=== PATIENT | female | born 1965 | race Caucasian/White ===

== ENCOUNTER 2020-01-31 20:40 | Inpatient (IN) | payer OTHER ==
[2020-01-31] MEDS ORDERED: ACETAMINOPHEN 325 MG TABLET (FP) PO ONE (20:45)
[2020-01-31 20:48] VITALS: BMI 29.4
[2020-01-31] MEDS ORDERED: ACETAMINOPHEN 325 MG TABLET (FP) ONE (20:52)
--- NOTE | 2020-01-31 21:02 | PDOC ---
Rapid Medical Evaluation Chief Complaint: Injury Time Seen by Provider: 01/31/20 20:45 Medical Evaluation: Allergies Allergy/AdvReac Type Severity Reaction Status Date / Time No Known Allergies Allergy Verified 10/10/15 23:49 Vital Signs Temp Pulse Resp BP Pulse Ox 98.1 F 72 19 142/74 99 01/31/20 20:44 01/31/20 20:44 01/31/20 20:44 01/31/20 20:44 01/31/20 20:44 01/31/20 21:01 Pt presents for evaluation of a L ankle injury. 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 Obvious swelling and guarding of the L ankle Orders: x-rays, tylenol Pt to proceed to the ER for further evaluation Discharge Disposition - Diagnosis Fall, Ankle pain - Referrals - Patient Instructions - Post Discharge Activity
[2020-01-31] MEDS ORDERED: IBUPROFEN 600 MG TABLET (FP) PO ONE ×2 (22:12→22:15)
--- NOTE | 2020-01-31 22:26 | PDOC ---
History of Present Illness - General Chief Complaint: Injury Stated Complaint: FALL Time Seen by Provider: 01/31/20 20:45 History Source: Patient, [employer] Used Exam Limitations: No Limitations - History of Present Illness Initial Comments: 01/31/20 22:19 54yo F with no PMH presents with b/l ankle pain and swelling after a fall. 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 Denies headstrike or LOC. Experienced b/l ankle pain. Abbrasion to right mccormick, but no knee or hip pain. ROS negative. PMH/PSH: x2 Meds: none Allergies: none PCP: Norris Jonas ROS GENERAL/CONSTITUTIONAL: No fever or chills. No weakness. HEAD, EYES, EARS, NOSE AND THROAT: No change in vision. No ear pain or discharge. No sore throat. CARDIOVASCULAR: No chest pain or shortness of breath RESPIRATORY: No cough, wheezing, or hemoptysis. GASTROINTESTINAL: No nausea, vomiting, diarrhea or constipation. GENITOURINARY: No dysuria, frequency, or change in urination. MUSCULOSKELETAL: +b/l ankle pain and swelling SKIN: No rash NEUROLOGIC: No headache, vertigo, loss of consciousness, or change in strength/sensation. ENDOCRINE: No increased thirst. No abnormal weight change HEMATOLOGIC/LYMPHATIC: No anemia, easy bleeding, or history of blood clots. ALLERGIC/IMMUNOLOGIC: No hives or skin allergy. PE GENERAL: Awake, alert, and fully oriented, in pain HEAD: No signs of trauma, normocephalic, atraumatic EYES: PERRLA, EOMI, sclera anicteric, conjunctiva clear ENT: Auricles normal inspection, hearing grossly normal, nares patent, oropharynx clear without exudates. Moist mucosa NECK: Normal ROM, supple, no lymphadenopathy, JVD, or masses LUNGS: No distress, speaks full sentences, clear to auscultation bilaterally HEART: Regular rate and rhythm, normal S1 and S2, no murmurs, rubs or gallops, peripheral pulses normal and equal bilaterally. ABDOMEN: Soft, nontender, normoactive bowel sounds. No guarding, no rebound. No masses EXTREMITIES : b/l ankle swelling and tenderness, L>R. L foot is cooler to touch, but sensation, motor function, and distal pulses intact NEUROLOGICAL: Cranial nerves II through XII grossly intact. Normal speech, gait not assessed SKIN: Warm, Dry, normal turgor, no rashes or lesions noted MDM: 54yo F with no PMH presents with b/l ankle pain and swelling after a fall. Plain film of both legs and feet were obtained and show fractures to the L distal fibula and tibia. -Pain control with tylenol 1000mg and ibuprophen 600mg, escalate as needed -Ice, elevation -splint 4mg IV morphine given, and posterior ankle splint with stirrup applied to left leg. Right ankle wrapped in george bandage -Admit because she cannot ambulate given sprain to R ankle and fracture on left. -Admission orders: CBC, CMP, EKG, CXR, Covid 01/31/20 23:[address] Peralta to admit the patient 02/01/20 00:00 Signed out to night ER team Past History - Medical History Allergies/Adverse Reactions: Allergies Allergy/AdvReac Type Severity Reaction Status Date / Time No Known Allergies Allergy Verified 01/31/20 23:37 Home Medications: Ambulatory Orders NK [No Known Home Medication] 10/10/15 COPD: No Diabetes: Yes (pre-diabetes) Thyroid Disease: Yes - Reproductive History Is Patient Now?: No - Immunization History Immunization Up to Date: Yes - Psycho-Social/Smoking History Smoking History: Never smoked Have you smoked in the past 12 months: No - Substance Abuse Hx (Audit-C & DAST Scrn) How often the patient has a drink containing alcohol: Never Score: In Men: 4 or > Positive; In Women: 3 or > Positive: 0 Screen Result (Pos requires Nsg. Audit-10AR): Negative In the last yr the pt used illegal drug/Rx for NonMed reason: No Score: Yes response is considered Positive: 0 Screen Result (Positive result requires Nsg. DAST-10): Negative *Physical Exam - Vital Signs Last Vital Signs Temp Pulse Resp BP Pulse Ox 98.1 F 72 19 142/74 99 01/31/20 20:44 01/31/20 20:44 01/31/20 20:44 01/31/20 20:44 01/31/20 20:44 ED Treatment Course - LABORATORY CBC & Chemistry Diagram: 01/31/20 22:50 01/31/20 22:50 - Medications Given in the ED: ED Medications Discontinued Medications Generic Name Dose Route Start Last Admin Trade Name Karthikeyan PRN Reason Stop Dose Admin Acetaminophen 1,000 mg 01/31/20 20:45 01/31/20 20:54 Tylenol - PO 01/31/20 20:46 1,000 mg ONCE ONE Administration Ibuprofen 600 mg 01/31/20 22:12 01/31/20 22:16 Motrin - PO 01/31/20 22:13 600 mg ONCE ONE Administration Discharge - Discharge Information Problems reviewed: Yes Clinical Impression/Diagnosis: Fall Qualifiers: Encounter type: initial encounter Qualified Code(s): W19.XXXA - Unspecified fall, initial encounter Ankle pain Qualifiers: Chronicity: acute Laterality: bilateral Qualified Code(s): M25.571 - Pain in right ankle and joints of right foot; M25.572 - Pain in left ankle and joints of left foot Closed left ankle fracture Qualifiers: Encounter type: initial encounter Qualified Code(s): S82.892A - Other fracture of left lower leg, initial encounter for closed fracture - Admission Yes - Follow up/Referral - Patient Discharge Instructions - Post Discharge Activity
[2020-01-31] MEDS ORDERED: morphine CARPU-JECT 2 MG/1 ML DISP.SYRIN IVPUSH ONE ×2 (22:47→23:16)
[2020-01-31] MEDS ORDERED: MORPHINE SULFATE 2 MG/ML VIAL ONE ×2 (22:54→23:19)
[2020-01-31 23:00] LABS: BASO % 0.5 % (0-2.0); EOS % 0.5 % (0-4.5); HEMATOCRIT 51.4 % (32.4-45.2); LYMPH % 6.3 % (8-40); MCH 28.6 pg (25.7-33.7); MCHC 33.1 g/dl (32.0-36.0); MEAN CELL VOLUME 86.2 fl (80-96); MONO % 4.9 % (3.8-10.2); NEUT % 87.8 % (42.8-82.8); PLATELET COUNT 153 K/MM3 (134-434); RBC 5.96 M/mm3 (3.60-5.2); RDW 13.7 % (11.6-15.6); WHITE BLOOD COUNT 11.1 K/mm3 (4.0-10.0)
--- NOTE | 2020-01-31 23:28 | PDOC ---
Documentation entered by Rosalba Wright SCRIBE, acting as scribe for Nina Jenkins MD. Nina Jenkins MD: This documentation has been prepared by the Gabriella galicia Sydney, SCRIBE, under my direction and personally reviewed by me in its entirety. I confirm that the documentation accurately reflects all work, treatment, procedures, and medical decision making performed by me. Attending Attestation - Resident Resident Name: [email or web address] - ED Attending Attestation I have performed the following: I have examined & evaluated the patient, The case was reviewed & discussed with the resident, I agree w/resident's findings & plan, Exceptions are as noted - HPI HPI: 01/31/20 21:46 Patient is a 54 year old female with a significant past medical history of pre- diabetes, hypothyroidism who presents to the ED s/p mechanical fall. 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 Denies loss of consciousness, dizziness, headache, nausea, vomiting, diarrhea, or urinary changes. Allergies: NKDA PCP: Dr. Dee Cantrell - Physicial Exam PE: 01/31/20 21:49 wnwd 54 yo female fell backwards and injured her left ankle head ncat neck no midline cervical vertebral tenderness lungs cta b/l cvs [id number] abdomen nontender skin warm and dry no lacerations extremities left ankle tenderness ,swelling ,good dt and pt pulses, sensation intact neuro axox3 01/31/20 22:08 GENERAL: Well-appearing, well-nourished. No apparent distress. HEENT: Normocephalic, atraumatic. PERRL, EOM intact. CARDIOVASCULAR: Normal S1, S2. Regular rate and rhythm. PULMONARY: Clear to auscultation bilaterally. ABDOMEN: Soft, non-distended, non-tender. EXTREMITIES: +swelling on the dorsal and medial side of L foot, hematoma on the dorsal aspect of R foot, 1 cm abrasion below R knee Normal ROM in all four extremities. SKIN: Warm, dry. No rash NEUROLOGICAL: No focal neurological deficits. - Medical Decision Making 01/31/20 21:52 radiograph left distal tibia and fibula fracture, no dislocation, ankle mortice normal right ankle sprain plsn splinting .ortho follow up 02/01/20 00:39 Discharge - Discharge Information Problems reviewed: Yes Clinical Impression/Diagnosis: Fall, Ankle pain Closed left ankle fracture Qualifiers: Encounter type: initial encounter Qualified Code(s): S82.892A - Other fracture of left lower leg, initial encounter for closed fracture - Follow up/Referral - Patient Discharge Instructions - Post Discharge Activity
[2020-01-31 23:35] LABS: BLOOD UREA NITROGEN 14.1 mg/dL (7-18); CALCIUM 10.4 mg/dL (8.5-10.1); CREATININE 0.8 mg/dL (0.55-1.3); POTASSIUM 4.2 mmol/L (3.5-5.1); TOT PROT 7.2 g/dl (6.4-8.2)
[2020-01-31 23:38] LABS: BILIRUBIN,TOTAL 0.7 mg/dL (0.2-1)
[2020-02-01] MEDS ORDERED: morphine CARPU-JECT 2 MG/1 ML DISP.SYRIN IVPUSH ONE (00:04)
[2020-02-01] MEDS ORDERED: MORPHINE SULFATE 2 MG/ML VIAL ONE ×3 (00:07→10:53)
--- NOTE | 2020-02-01 10:32 | EKG ---
Test Reason : Blood Pressure : / mmHG Vent. Rate : 073 BPM Atrial Rate : 073 BPM P-R Int : 144 ms QRS Dur : 074 ms QT Int : 384 ms P-R-T Axes : 032 035 028 degrees QTc Int : 423 ms POOR DATA QUALITY, INTERPRETATION MAY BE ADVERSELY AFFECTED NORMAL SINUS RHYTHM SEPTAL INFARCT , AGE UNDETERMINED ABNORMAL ECG WHEN COMPARED WITH ECG OF 10-OCT-2015 23:53, NO SIGNIFICANT CHANGE WAS FOUND Confirmed by MD Pawan, Allan ([id number]) on 02/01/2020 10:32:32 AM Referred By: Confirmed By:Allan Villalta MD
[2020-02-01] MEDS ORDERED: HEPARIN NA (PORCINE) 5,000 UNITS/ML 1ML VIAL ONE (10:54)
[2020-02-01] MEDS: MORPHINE SULFATE 2 MG/ML VIAL IVPUSH PRN ×3 (11:02→20:35)
[2020-02-01] MEDS: HEPARIN NA (PORCINE) 5,000 UNITS/ML 1ML VIAL SQ SCH ×2 (11:02→22:19)
[2020-02-01 14:19] LABS: INR 1.03 (0.83-1.09); PROTHROMBIN TIME (PATIENT) 12.1 SEC (9.7-13.0)
--- NOTE | 2020-02-01 17:00 | CONSULT ---
Consult - text type - Consultation Consultation Note: ORTHOPEDIC SURGERY CONSULTATION NOTE Department of Orthopedic Surgery HISTORY OF PRESENT ILLNESS Mr. Merritt is a 54 year old female with a significant past medical history of pre-diabetes, hypothyroidism who presents to the ED s/p mechanical fall. 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 The patient notes severe pain in her left ankle, and moderate pain in her right ankle, which worsens with movement. Denies any other injuries. Denies numbness, tingling or other constitutional complaints. Denies tobacco use, drug use, alcohol abuse. The patient lives with family and uses no assistive devices at baseline. FAMILY HISTORY non-contributory REVIEW OF SYMPTOMS A twelve-point review of systems was performed and was negative except as noted in HPI. PHYSICAL EXAM Constitutional: Alert and oriented to person, place, and time. Appears well- developed and well-nourished. No acute distress, appropriate mood and affect. Right Upper Extremity: Skin warm, dry, and intact; no lesions, rashes or ulcers noted. Muscle mass equal and symmetric to contralateral side. No atrophy noted. No masses or effusions noted. No tenderness to palpation all joints; nontender throughout rest of extremity. Full passive and active ROM, free from pain. Joints stable with no pathologic laxity. M/R/U/MSK/AX motor intact; SILT distally; 2+ radial pulses; Cap refill brisk. Tone and reflexes normal. Left Upper Extremity: Skin warm, dry, and intact; no lesions, rashes or ulcers noted. Muscle mass equal and symmetric to contralateral side. No atrophy noted. No masses or effusions noted. No tenderness to palpation all joints; nontender throughout rest of extremity. Full passive and active ROM, free from pain. Joints stable with no pathologic laxity. M/R/U/MSK/AX motor intact; SILT distally; 2+ radial pulses; Cap refill brisk. Tone and reflexes normal. Right Lower Extremity: Skin warm, dry, and intact; no lesions, rashes or ulcers noted. Muscle mass equal and symmetric to contralateral side. No atrophy noted. No masses or effusions noted. Tender to palpation at the ATFL, with mild swelling noted laterally; nontender throughout rest of extremity. No cords or calf tenderness No significant calf/ankle edema. Full passive and active ROM of the knee and hip , free from pain. Joints stable with no pathologic laxity. EHL/TA/GS motor limited secondary to pain; SILT distally; 2+ DP pulses; Cap refill brisk. Left Lower Extremity: Skin warm, dry, and intact; no lesions, rashes or ulcers noted. Muscle mass equal and symmetric to contralateral side. No atrophy noted. No masses or effusions noted. Tender to palpation at over the medial and lateral malleoli; nontender throughout rest of extremity. There is significant swelling over the anterior and lateral portions of the ankle. No cords or calf tenderness. Full passive and active ROM of the knee and hip, free from pain. LROM of the ankle secondary to pain and swelling; Joints stable with no pathologic laxity. EHL/FHL motor intact; SILT distally; 2+ DP pulses; Cap refill brisk. Active Problems Problem Status Category Onset Ankle pain Acute Medical Closed left ankle fracture Acute Medical Fall Acute Medical Social History Smoking history Never smoked Hx Alcohol Use No Allergies Allergy/AdvReac Type Severity Reaction Status Date / Time No Known Allergies Allergy Verified 01/31/20 23:37 Active Medications Generic Name Dose Route Start Last Admin Trade Name Freq PRN Reason Stop Dose Admin Heparin Sodium (Porcine) 5,000 unit 02/01/20 10:00 02/01/20 11:02 Heparin - SQ 5,000 unit BID NEGRITO Administration Morphine Sulfate 2 mg 02/01/20 01:00 02/01/20 16:04 Morphine Sulfate IVPUSH 2 mg Q4H PRN Administration PAIN LEVEL 6-10 Vital Signs (last) Temp Pulse Resp BP Pulse Ox 98.0 F 76 16 119/82 99 02/01/20 14:00 02/01/20 14:00 02/01/20 06:34 02/01/20 14:00 02/01/20 14:00 Intake and Output 01/30/20 01/31/20 02/01/20 23:59 23:59 23:59 Other: Weight 177 lb Height 5 ft 5 in Body Mass Index (BMI) 29.4 Weight Measurement Method Est/Stated by Patient Laboratory 01/31/20 22:50 01/31/20 22:50 PT with INR 12.10 SEC (9.7-13.0) 02/01/20 13:30 IMAGING I personally reviewed all radiographs, and other imaging. They demonstrate a left bimalleolar ankle fracture; Right ankle radiographs show no fracture, dislocation, bony lesions. ASSESSMENT AND PLAN Ms. Merritt is a 54 year old female presenting status post mechanical fall with 1.Left sided bimalleolar ankle fracture, and 2. Right sided ankle sprain. We have reviewed the imaging and clinical findings in detail, as well as their potential implications. After appropriate informed discussion, the patient was placed in a well-padded trilaminar splint. This is an operative fracture. Admit NPO past midnight except for meds - Hold all anticoagulation medications past midnight NWB LLE - WBAT RLE / PT F/U AM Labs Type and Screen LR 84cc/hr when NPO EKG CXR UA - Strict ICE/ELEVATION of left ankle Plan for surgery 02/02/2020 noon. All questions were answered. Thank you for involving our team in the care of this patient. Please call us at [phone] with questions
[2020-02-01 19:21] LABS: BASO % 0.6 % (0-2.0); EOS % 1.7 % (0-4.5); HEMATOCRIT 49.9 % (32.4-45.2); HEMOGLOBIN 16.4 GM/dL (10.7-15.3); LYMPH % 15.5 % (8-40); MCH 28.6 pg (25.7-33.7); MCHC 32.9 g/dl (32.0-36.0); MEAN CELL VOLUME 86.9 fl (80-96); MEAN PLT VOLUME 10.3 fl (7.5-11.1); MONO % 7.4 % (3.8-10.2); NEUT % 74.8 % (42.8-82.8); PLATELET COUNT 129 K/MM3 (134-434); RBC 5.75 M/mm3 (3.60-5.2); RDW 13.5 % (11.6-15.6); WHITE BLOOD COUNT 7.1 K/mm3 (4.0-10.0)
[2020-02-01 19:50] LABS: ALBUMIN 3.7 g/dl (3.4-5.0); BILIRUBIN,TOTAL 1.6 mg/dL (0.2-1); BLOOD UREA NITROGEN 13.6 mg/dL (7-18); CALCIUM 9.7 mg/dL (8.5-10.1); CREATININE 0.7 mg/dL (0.55-1.3); POTASSIUM 3.9 mmol/L (3.5-5.1); TOT PROT 6.8 g/dl (6.4-8.2)
--- NOTE | 2020-02-01 21:32 | HP ---
Admitting History and Physical - Admission History of Present Illness: Pt is a 54 y/o female w/ PMH significant for ?hypothyroidism and prediabetes. Pt was walking when she had a mechanical fall. Pt denies any LOC/VICKERS. Pt denies any head trauma. Pt presented to ER w/ increase pain in her ankles. XRAY of feet showed a Lt ankle fx. - Past Medical History ...LMP: 01/31/20 ...: No Endocrine: Yes: Hypothyroidism - Smoking History Smoking history: Never smoked Have you smoked in the past 12 months: No - Alcohol/Substance Use Hx Alcohol Use: No Home Medications - Allergies Allergies/Adverse Reactions: Allergies Allergy/AdvReac Type Severity Reaction Status Date / Time No Known Allergies Allergy Verified 01/31/20 23:37 - Home Medications Home Medications: Ambulatory Orders NK [No Known Home Medication] 10/10/15 Family Medical History Family History: Unremarkable Review of Systems - Review of Systems Constitutional: reports: No Symptoms Eyes: reports: No Symptoms HENT: reports: No Symptoms Neck: reports: No Symptoms Cardiovascular: reports: No Symptoms Respiratory: reports: No Symptoms Gastrointestinal: reports: No Symptoms Genitourinary: reports: No Symptoms Physical Examination Vital Signs: Vital Signs Temperature 98.4 F 02/01/20 18:07 Pulse Rate 70 02/01/20 18:07 Respiratory Rate 20 02/01/20 18:07 Blood Pressure 125/76 02/01/20 18:07 O2 Sat by Pulse Oximetry (%) 96 02/01/20 18:07 Eyes: Yes: WNL HENT: Yes: WNL Neck: Yes: WNL, Supple Cardiovascular: Yes: WNL, Regular Rate and Rhythm Respiratory: Yes: WNL, Regular, CTA Bilaterally Gastrointestinal: Yes: WNL, Normal Bowel Sounds, Soft Extremities: Yes: Other (Lt foot in cast) Neurological: Yes: WNL, Alert, Oriented ...Motor Strength: WNL Labs: CBC, BMP 02/01/20 18:30 02/01/20 18:30 Problem List - Problems (1) Closed left ankle fracture Assessment/Plan: Pt is medically optimized for surgery Will also get cardio consult due to ?abnormal EKG Check echo Cont IVF NPO Check labs in am Cont pain management Code(s): S82.892A - OTH FRACTURE OF LEFT LOWER LEG, INIT FOR CLOS FX Qualifiers: Encounter type: initial encounter Qualified Code(s): S82.892A - Other fracture of left lower leg, initial encounter for closed fracture (2) Right ankle sprain Code(s): S93.401A - SPRAIN OF UNSPECIFIED LIGAMENT OF RIGHT ANKLE, INIT ENCNTR (3) Hypothyroidism Assessment/Plan: Check TSH Code(s): E03.9 - HYPOTHYROIDISM, UNSPECIFIED (4) Prediabetes Assessment/Plan: Check HgA1c Code(s): R73.03 - PREDIABETES
[2020-02-02] MEDS: LACTATED RINGERS SOLUTION 1,000 ML/1,000 ML INFUS.BAG IV SCH ×4 (00:34→22:58)
[2020-02-02] MEDS: morphine SULFATE 4 MG/ML VIAL IVPUSH PRN ×2 (00:43→06:44)
[2020-02-02 08:36] LABS: BASO % 0.5 % (0-2.0); EOS % 1.7 % (0-4.5); HEMATOCRIT 49.7 % (32.4-45.2); HEMOGLOBIN 16.3 GM/dL (10.7-15.3); MCH 28.2 pg (25.7-33.7); MCHC 32.8 g/dl (32.0-36.0); MEAN PLT VOLUME 9.9 fl (7.5-11.1); MONO % 8.6 % (3.8-10.2); NEUT % 75.2 % (42.8-82.8); PLATELET COUNT 128 K/MM3 (134-434); RBC 5.77 M/mm3 (3.60-5.2); RDW 13.3 % (11.6-15.6)
[2020-02-02 08:55] LABS: ALBUMIN 3.6 g/dl (3.4-5.0); BILIRUBIN,TOTAL 0.8 mg/dL (0.2-1); BLOOD UREA NITROGEN 10.3 mg/dL (7-18); CALCIUM 9.8 mg/dL (8.5-10.1); CREATININE 0.6 mg/dL (0.55-1.3); POTASSIUM 4.1 mmol/L (3.5-5.1); TOT PROT 6.5 g/dl (6.4-8.2)
--- NOTE | 2020-02-02 10:51 | CON.CARD ---
Consult Consult Specialty:: Cardiology Reason for Consultation:: Preop clearence L ankle fx repair - History of Present Illness History of Present Illness: Pt is a 54 y/o female w/ PMH significant for ?hypothyroidism and prediabetes. Pt was walking when she had a mechanical fall. Pt denies any LOC/VICKERS. Pt denies any head trauma. Pt presented to ER w/ increase pain in her ankles. XRAY of feet showed a Lt ankle fx. h/o obtained via phone reference librarian. - History Source History Provided By: Patient, Medical Record - Past Medical History ...LMP: 01/31/20 ...: No Endocrine: Yes: Hypothyroidism - Alcohol/Substance Use Hx Alcohol Use: No - Smoking History Smoking history: Never smoked Have you smoked in the past 12 months: No Home Medications - Allergies Allergies/Adverse Reactions: Allergies Allergy/AdvReac Type Severity Reaction Status Date / Time No Known Allergies Allergy Verified 01/31/20 23:37 - Home Medications Home Medications: Ambulatory Orders NK [No Known Home Medication] 10/10/15 Review of Systems - Review of Systems Constitutional: reports: No Symptoms Eyes: reports: No Symptoms HENT: reports: No Symptoms Neck: reports: No Symptoms Cardiovascular: reports: No Symptoms Respiratory: reports: No Symptoms Gastrointestinal: reports: No Symptoms Genitourinary: reports: No Symptoms Breasts: reports: No Symptoms Reported Musculoskeletal: reports: No Symptoms Integumentary: reports: No Symptoms Neurological: reports: No Symptoms Endocrine: reports: No Symptoms Hematology/Lymphatic: reports: No Symptoms Psychiatric: reports: No Symptoms Vital Signs: Vital Signs Temperature 99.2 F 02/02/20 05:00 Pulse Rate 68 02/02/20 05:00 Respiratory Rate 20 02/02/20 05:00 Blood Pressure 150/88 02/02/20 05:00 O2 Sat by Pulse Oximetry (%) 97 02/02/20 05:00 Constitutional: Yes: Well Nourished, No Distress, Calm Eyes: Yes: WNL, Conjunctiva Clear, EOM Intact HENT: Yes: WNL, Atraumatic, Normocephalic Neck: Yes: WNL, Supple, Trachea Midline Respiratory: Yes: WNL, Regular, CTA Bilaterally Gastrointestinal: Yes: WNL, Normal Bowel Sounds Renal/: Yes: WNL Cardiovascular: Yes: WNL, Regular Rate and Rhythm Musculoskeletal: Yes: WNL Extremities: Yes: WNL Edema: Yes Integumentary: Yes: WNL Neurological: Yes: WNL, Alert, Oriented ...Motor Strength: WNL Psychiatric: Yes: WNL, Alert, Oriented - Other Data Labs, Other Data: CBC, BMP 02/02/20 07:05 02/02/20 07:05 INR, PTT INR 1.03 (0.83-1.09) 02/01/20 13:30 Imaging - Results Chest X-ray: Image Reviewed (no i/e) EKG: Image Reviewed (sr old septal infarct) Problem List - Problems (1) Ankle pain Code(s): M25.579 - PAIN IN UNSPECIFIED ANKLE AND JOINTS OF UNSPECIFIED FOOT Qualifiers: Chronicity: acute Laterality: bilateral Qualified Code(s): M25.571 - Pain in right ankle and joints of right foot; M25.572 - Pain in left ankle and joints of left foot (2) Closed left ankle fracture Code(s): S82.892A - OTH FRACTURE OF LEFT LOWER LEG, INIT FOR CLOS FX Qualifiers: Encounter type: initial encounter Qualified Code(s): S82.892A - Other fracture of left lower leg, initial encounter for closed fracture (3) Fall Code(s): W19.XXXA - UNSPECIFIED FALL, INITIAL ENCOUNTER Qualifiers: Encounter type: initial encounter Qualified Code(s): W19.XXXA - Unspecified fall, initial encounter (4) Hypothyroidism Code(s): E03.9 - HYPOTHYROIDISM, UNSPECIFIED (5) Prediabetes Code(s): R73.03 - PREDIABETES (6) Right ankle sprain Code(s): S93.401A - SPRAIN OF UNSPECIFIED LIGAMENT OF RIGHT ANKLE, INIT ENCNTR (7) Chest pain Code(s): R07.9 - CHEST PAIN, UNSPECIFIED Qualifiers: Chest pain type: unspecified Qualified Code(s): R07.9 - Chest pain, unspecified Assessment/Plan 54 y/o female w/ PMH significant for ?hypothyroidism and prediabetes. Pt was walking when she had a mechanical fall. Pt denies any LOC/VICKERS. Pt denies any head trauma. Pt presented to ER w/ increase pain in her ankles. XRAY of feet showed a Lt ankle fx. Repeated EKG WNL ECHO nl Patient has good exercise tolerancein excess of 4.6 mets no h/o of angina cad or any medical problems Patient is lul risk for cardiac complications during non cardiac surgery and cleared for the procedure. DVT plx
--- NOTE | 2020-02-02 11:48 | ECHO ---
Version: 1 Name: VAL SCHWARZ Exam: Adult Echocardiogram Study Date: 02/02/2020, 8:07 AM Age: 54 Years MMode/2D Measurements & Calculations IVSd: 0.97 cm LVIDs: 2.8 cm LVIDd: 4.8 cm LVPWd: 0.85 cm LAV (MOD-bp): 42.0 ml LVOT diam: 2.00 cm Ao root diam: 3.0 cm LA dimension: 2.9 cm Doppler Measurements & Calculations MV E max ivan: 79.8 cm/sec Med E/e': 11.8 MV A max ivan: 72.4 cm/sec Med Peak E' Ivan: 6.7 cm/sec MV E/A: 1.10 Lat E/e': 10.6 Lat Peak E' Ivan: 7.5 cm/sec Ao max P.2 mmHg Ao V2 max: 152.0 cm/sec TR max ivan: 224.3 cm/sec TR max P.3 mmHg Procedure A two-dimensional transthoracic echocardiogram with color flow and Doppler was performed. The patien t was in normal sinus rhythm during the exam. Left Ventricle The left ventricular size, thickness and function are normal. The transmitral spectral Doppler flow pattern is normal for age. Right Ventricle The right ventricle is normal in size and function. Atria Normal left and right atrial size and function. Mitral Valve The mitral valve is grossly normal. There is trace mitral regurgitation. Tricuspid Valve The tricuspid valve is not well visualized, but is grossly normal. There is mild tricuspid regurgita tion. Right ventricular systolic pressure is normal. Aortic Valve The aortic valve is trileaflet. No hemodynamically significant valvular aortic stenosis. Pulmonic Valve The pulmonic valve is not well visualized. Great Vessels The aortic root is normal size. Pericardium/Pleura There is no pericardial effusion. Summary Statements A two-dimensional transthoracic echocardiogram with color flow and Doppler was performed. The left ventricular size, thickness and function are normal Normal left and right atrial size and function. There is trace mitral regurgitation. There is mild tricuspid regurgitation. Right ventricular systolic pressure is normal. No hemodynamically significant valvular aortic stenosis. There is no pericardial effusion. MD Allan Villalta 02/02/2020, 11:48 AM Ordering Physician: Jeanie Peralta Performed By: Daniela Kelly
[2020-02-02] MEDS ORDERED: morphine SULFATE 4 MG/ML VIAL IVPUSH ONE (12:00)
[2020-02-02] MEDS ORDERED: ROPIVACAINE HCL 0.5% 30ML VIAL ONE (13:08)
[2020-02-02] MEDS ORDERED: MIDAZOLAM HCL 2 MG/2 ML SINGLE DOSE VIAL ONE ×2 (13:09)
--- NOTE | 2020-02-02 13:12 | EKG ---
Test Reason : Blood Pressure : / mmHG Vent. Rate : 064 BPM Atrial Rate : 064 BPM P-R Int : 144 ms QRS Dur : 082 ms QT Int : 398 ms P-R-T Axes : 026 036 033 degrees QTc Int : 410 ms NORMAL SINUS RHYTHM NORMAL ECG WHEN COMPARED WITH ECG OF 01-FEB-2020 00:21, T WAVE INVERSION NO LONGER EVIDENT IN ANTERIOR LEADS Confirmed by MD KEI, ANNE-MARIE ([id number]) on 02/02/2020 1:12:12 PM Referred By: Vijay HOWARD Confirmed By:ANNE-MARIE CHOUDHURY MD
[2020-02-02 13:14] LABS: EPI CELLS >36 /uL (0-25.1); HYALINE CASTS 0 /uL (0-3.1); URINE APPEARANCE CLEAR; URINE BACTERIA 227 /uL (0-1359); URINE BILIRUBIN NEGATIVE (NEGATIVE); URINE COLOR YELLOW; URINE GLUCOSE (UA) NEGATIVE (NEGATIVE); URINE KETONE NEGATIVE (NEGATIVE); URINE LEUK ESTERASE 2+ (NEGATIVE); URINE NITRITE NEGATIVE (NEGATIVE); URINE PROTEIN NEGATIVE (NEGATIVE); URINE RBC 5 /uL (0-23.9); URINE UROBILINOGEN 0.2 mg/dL (0.2-1.0); URINE WBC 91 /uL (0-25.8)
[2020-02-02] MEDS ORDERED: PROPOFOL 20 ML ONE (13:58)
[2020-02-02] MEDS ORDERED: LIDOCAINE HCL/PF 2% SDV 5ML VIAL ONE (13:58)
[2020-02-02] MEDS ORDERED: ONDANSETRON 4 MG/2 ML VIAL IVPUSH PRN ×2 (14:15→17:46)
[2020-02-02] MEDS ORDERED: PROMETHAZINE HCL 25 MG/1 ML VIAL IVPB PRN (14:15)
[2020-02-02] MEDS ORDERED: oxyCODONE HCL 5 MG TABLET PO PRN ×3 (14:15→17:46)
[2020-02-02] MEDS ORDERED: ACETAMINOPHEN 1000 MG/100 ML VIAL (NON FORMULARY) IVPB ONE ×2 (14:15→17:46)
[2020-02-02] MEDS ORDERED: LACTATED RINGERS SOLUTION 1,000 ML IV SCH (14:15)
[2020-02-02] MEDS ORDERED: ceFAZolin SODIUM 1 GM VIAL ONE (14:52)
[2020-02-02] MEDS ORDERED: ceFAZolin SODIUM 1 GM VIAL IVPB ONE (14:55)
--- NOTE | 2020-02-02 17:09 | OPR ---
DATE OF OPERATION: 02/02/2020 TITLE OF OPERATION: LEFT ANKLE ORIF PREOPERATIVE DIAGNOSIS: LEFT ANKLE FRACTURE POSTOPERATIVE DIAGNOSIS: LEFT ANKLE FRACTURE SURGEON: Christian Hatfield DO CLOTHING EXAMINER: Moody Troy DO ANESTHESIA: General anesthesia; Regional block SPECIMEN: None PROSTHETIC DEVICE/IMPLANT: Arthrex 5 hole distal fibula locking plate; 4 distal locking screws, 3 proximal cortical screws; Two 40mm compression screws COMPLICATIONS: none EBL: 30mL TOURNIQUET TIME: 73 Mins INDICATIONS FOR SURGERY: Ms. Merritt is a 54 year old female who presented in the preoperative setting with a chief complaint of left ankle fracture. Based on their pre-injury level of activity, surgical treatment was discussed. The risks and benefits of surgery and anesthesia were discussed in detail including but not limited to TX, , pain, bleeding, infection, scarring, damage to vessels and nerves, failure to obtain the desired result, failure to heal, failure to return to sport or work. Understanding the risks and benefits, Ms. Merritt opted to proceed with surgical management. SURGEON'S NARRATIVE: The patient was seen in the preoperative area. Her left side was marked for surgery and the consent was reviewed and signed. Anesthesia gave her a popliteal block in the holding area. She was then brought back to the operating room. She was transferred to the OR table. All bony prominences were well padded. Anesthesia was induced. A time-out was held and all team members agreed on the operative side and planned procedure. Preoperative prophylactic antibiotics were indicated and 2g of Ancef were given prior to and within one hour of any incisions. Sequential compression devices were placed on the contralateral extremity for the duration of the surgery as part of comprehensive DVT prophylaxis protocol consisting of intraoperative SCD, early post operative mobilization, and post operative ASA 325 BID for chemoprophylaxsis. A thigh tourniquet was placed. The patient was positioned with the use of multiple sheets under the hip. We again verified that all bony prominences were well padded. The leg was then prepped and draped in the usual sterile fashion. The ankle was exanguinated with an Esmarch and the tourniquet was inflated. It remained inflated for 73 minutes. Attention was turned to the lateral ankle. An incision was marked out along the lateral fibula for a direct lateral approach based off of the level of the fracture. The skin was incised sharply with a 15-blade, then a metzenbaum scissor was used to dissect the deeper tissue. SPN was not in the operative field. The fracture was identified and the fracture hematoma and ends were cleaned using a dental pick and currette with care not to disrupt the fragments to later ibrahim them together. It was a comminuted fracture. The fracture was copiously irrigated. Through manual reduction, a lion jaw clamp and pointed reduction clamp were used to restore fracture alignment and rotation. Fluoroscopy confirmed the reduction of the fracture. Due to the comminution, it was determined a lag screw would not be appropriate for reduction of the distal fibula fracture. Attention was therefore turned to the plate. A 5-hole distal fibula locking plate was utilized for fixation. It was placed on the lateral fibula and correct position was verified using fluoroscopy. The plate was then placed and held in place with 4 locking screws distally, and 3 cortical screws proximally, effectively bridging the fracture site. Fluoroscopy was employed throughout plate application to verify correct positioning. Attention was then turned to the medial malleolar fracture. An incision was marked out along the distal medial malleolus. The skin was incised sharply with a 15-blade, then a metzenbaum scissor was used to dissect the deeper tissue. Saphenous nerve and vein were identified and retracted anteriorly. The medial malleollus fracture was identified and the fracture hematoma and ends were cleaned using a dental pick and currette with care not to disrupt the fragments to later ibrahim them together. The fracture was copiously irrigated. Through manual reduction, a pointed reduction clamp was used to restore fracture alignment and rotation. Two compression screws were placed in parallel fashion into the medial malleollus which provided great compression of the fracture site and excellent reduction. Fluoroscopy confirmed the reduction of the medial malleollus fracture. Attention was then turned to evaluation of syndesmotic stability. A mortise X-ray was obtained and a stress examination using dorsiflexion and external rotation to evaluate the integrity of the ankle ligaments was performed. Under live fluoroscopy, syndesmotic and medial clear space integrity were evaluated, and we found no widening of the medial clear space. Biplanar fluoroscopy was employed throughout the case to confirm correct placement of all metal hardware. Attention was then turned to closure. The incision was copiously irrigated with sterile saline. Deep tissue was closed with 2-0 vicryl, and the skin was closed with 3-0 nylon in mattress form. At closure, all needle and sponge counts were correct. The toes were warm and well perfused at the end of the case. Xeroform, 4x4's and sterile-soft webril was applied. Then a standard AO splint with posterior splint and U-shaped splint was applied. Ms. Merritt was then awoken and brought to the postoperative care unit in stable condition. There were no complications. I was scrubbed the entire case. There was no qualified project construction assistant manager or resident to assist with the case, so Dr. Moody Troy DO served as phlebotomy lab assistant throughout the case. POST-OPERATIVE PLAN: - The post-operative dressing should remain in place until follow up in our office in 14 days. The dressing should be kept clean/dry. - The leg should be elevated above the level of the heart as much as possible to decrease swelling and improve wound healing. - Ice to the ankle continuously - Transition to oral pain medications before discharge - Comprehensive DVT ppx with SCD on contralateral leg, early postoperative mobilization, Aspirin 325mg BID for 6 weeks for chemoprophylaxis, Ancef 2 gm Q8 hours x 2 more doses. - Physical therapy: Non-weight bearing left lower extremity - Dispo Planning Please call us at [phone] if you have any questions. Christian Hatfield DO Orthopedic Surgery
[2020-02-02] MEDS ORDERED: morphine SULFATE 4 MG/ML VIAL IVPUSH PRN (17:46)
--- NOTE | 2020-02-02 21:11 | PN ---
Progress Note, Physician History of Present Illness: Pt tolerated surgery - Current Medication List Current Medications: Active Medications Aspirin (Ecotrin -) 325 mg PO BID [facility] Fentanyl (Sublimaze Injection -) 50 mcg IVPUSH Q5M PRN PRN Reason: PAIN-PACU ORDER X 4 DOSES ONLY Cefazolin Sodium/Dextrose (Ancef 2 Gm Premixed Ivpb -) 2 gm in 50 mls @ 100 mls/hr IVPB Q8H [facility] Stop: 02/03/20 07:29 Lactated Ringer's (Lactated Ringers Solution) 1,000 ml in 1,000 mls @ 83 mls/hr IV ASDIR [facility] Last Admin: 02/02/20 18:00 Dose: 0 mls Documented by: Morphine Sulfate (Morphine Sulfate) 4 mg IVPUSH Q6H PRN PRN Reason: PAIN LEVEL 4-6 Ondansetron HCl (Zofran Injection) 4 mg IVPUSH Q6H PRN PRN Reason: NAUSEA AND/OR VOMITING Stop: 02/03/20 14:14 Oxycodone HCl (Roxicodone -) 10 mg PO Q3H PRN PRN Reason: PAIN LEVEL 7-10 Oxycodone HCl (Roxicodone -) 5 mg PO Q3H PRN PRN Reason: PAIN LEVEL 1-3 Oxycodone HCl (Oxycontin -) 10 mg PO BID [facility] Stop: 02/05/20 14:16 - Objective Vital Signs: Vital Signs Temperature 98.6 F 02/02/20 18:00 Pulse Rate 68 02/02/20 18:00 Respiratory Rate 20 02/02/20 18:00 Blood Pressure 130/80 02/02/20 18:00 O2 Sat by Pulse Oximetry (%) 98 02/02/20 18:00 Cardiovascular: Yes: WNL, Regular Rate and Rhythm Respiratory: Yes: WNL, Regular, CTA Bilaterally Gastrointestinal: Yes: WNL, Normal Bowel Sounds, Soft Extremities: Yes: Other (LLE in cast) Labs: CBC, BMP 02/02/20 07:05 02/02/20 07:05 INR, PTT INR 1.03 (0.83-1.09) 02/01/20 13:30 Problem List - Problems (1) Closed left ankle fracture Assessment/Plan: S/P Lt ankle ORIF As per surgery Cont IVF Check labs in am Cont pain management Code(s): S82.892A - OTH FRACTURE OF LEFT LOWER LEG, INIT FOR CLOS FX Qualifiers: Encounter type: initial encounter Qualified Code(s): S82.892A - Other fracture of left lower leg, initial encounter for closed fracture (2) Right ankle sprain Code(s): S93.401A - SPRAIN OF UNSPECIFIED LIGAMENT OF RIGHT ANKLE, INIT ENCNTR (3) Hypothyroidism Assessment/Plan: Tsh minimally elevated Code(s): E03.9 - HYPOTHYROIDISM, UNSPECIFIED (4) Prediabetes Assessment/Plan: HgA1c was 5.6 Code(s): R73.03 - PREDIABETES
[2020-02-02] MEDS ORDERED: oxyCODONE HCL 10 MG SUSTAINED ACTING TABLET PO SCH (22:00)
[2020-02-02] MEDS: CEFAZOLIN 2 GM/D5W 2 GM/50 ML ML IVPB SCH (23:08)
[2020-02-02] MEDS: oxyCODONE HCL 10 MG SUSTAINED ACTING TABLET PO SCH (23:09)
[2020-02-03] MEDS: oxyCODONE HCL 5 MG TABLET PO PRN ×2 (06:09→13:48)
[2020-02-03] MEDS: CEFAZOLIN 2 GM/D5W 2 GM/50 ML ML IVPB SCH (06:10)
[2020-02-03 08:24] LABS: BASO % 0.4 % (0-2.0); EOS % 0.4 % (0-4.5); HEMATOCRIT 47.6 % (32.4-45.2); HEMOGLOBIN 15.7 GM/dL (10.7-15.3); LYMPH % 7.8 % (8-40); MCHC 32.9 g/dl (32.0-36.0); MEAN PLT VOLUME 9.7 fl (7.5-11.1); MONO % 9.2 % (3.8-10.2); NEUT % 82.2 % (42.8-82.8); PLATELET COUNT 136 K/MM3 (134-434); RDW 13.2 % (11.6-15.6); WHITE BLOOD COUNT 8.8 K/mm3 (4.0-10.0)
--- NOTE | 2020-02-03 08:24 | PN ---
Progress Note (short form) - Note Progress Note: Anesthesia postop note 54 y/o F s/p GA/ adductor canal/popliteal nerve block for ankle orif. POD#1, vss, aaox3, some pain reported, to be medicated soon. No anesthesia complications.
--- NOTE | 2020-02-03 08:27 | CONSULT ---
Consult - text type - Consultation Consultation Note: ORTHOPEDIC SURGERY PROGRESS NOTE Department of Orthopedic Surgery SUBJECTIVE No acute events overnight. No complaints currently. Denies chest pain, shortness of breath, or calf pain. No nausea or vomiting. Tolerating oral intake. Pain control difficult overnight, but improving. PHYSICAL EXAMINATION General: Alert, oriented, cooperative and no distress. Left Lower Extremity: Dressing/splint intact; Skin intact, no lesions, rashes or ulcers noted. Muscle mass equal and symmetric to contralateral side. No atrophy noted. No masses or effusions noted. No tenderness to palpation. Full passive and active ROM of the knee and hip, free from pain. EHL/FHL motor intact; SILT distally; 2+ DP pulses; Cap refill brisk. DVT Exam: No evidence of DVT seen on physical exam; No cords or calf tenderness; No significant calf/ankle edema. Intake & Output 02/01/20 02/02/20 02/03/20 23:59 23:59 23:59 Intake Total 800 1601 Output Total 500 1200 Balance 300 401 Intake: IV 1281 LACTATED RINGERS SOLUTION 581 1,000 ml In 1,000 ml @ 83 mls/hr IV ASDIR [facility] Rx #:[id number] Oral 800 320 Output: Urine 500 1200 External Catheter 500 1200 Other: Voiding Method External Catheter Bedpan Bowel Movement No No No Weight 177 lb Height 5 ft 5 in Body Mass Index (BMI) 29.4 Weight Measurement Method Stated by Caregiver Active Medications Generic Name Dose Route Start Last Admin Trade Name Freq PRN Reason Stop Dose Admin Aspirin 325 mg 02/03/20 10:00 Ecotrin - PO BID [facility] Fentanyl 50 mcg 02/02/20 17:46 Sublimaze Injection - IVPUSH Q5M PRN PAIN-PACU ORDER X 4 DOSES ONLY Lactated Ringer's 1,000 ml in 1,000 mls @ 83 mls/hr 02/02/20 17:46 02/02/20 22:58 Lactated Ringers Solution IV 83 mls/hr ASDIR [facility] Administration Morphine Sulfate 4 mg 02/02/20 17:46 02/03/20 08:16 Morphine Sulfate IVPUSH 4 mg Q6H PRN Administration PAIN LEVEL 4-6 Ondansetron HCl 4 mg 02/02/20 17:46 Zofran Injection IVPUSH 02/03/20 14:14 Q6H PRN NAUSEA AND/OR VOMITING Oxycodone HCl 10 mg 02/02/20 17:46 02/03/20 06:09 Roxicodone - PO 10 mg Q3H PRN Administration PAIN LEVEL 7-10 Oxycodone HCl 5 mg 02/02/20 17:46 Roxicodone - PO Q3H PRN PAIN LEVEL 1-3 Oxycodone HCl 10 mg 02/02/20 22:00 02/02/20 23:09 Oxycontin - PO 02/05/20 14:16 10 mg BID [facility] Administration Vital Signs (last) Temp Pulse Resp BP Pulse Ox 98.6 F 85 18 135/77 94 L 02/03/20 06:00 02/03/20 06:00 02/03/20 06:00 02/03/20 06:00 02/03/20 06:00 Laboratory (coagulation) PT with INR 12.10 SEC (9.7-13.0) 02/01/20 13:30 ASSESSMENT AND PLAN Ms. Merritt is a 54 year old female s/p 1. Left Ankle ORIF POD 1, and 2. Right Ankle Sprain - Pain control: Transition to oral pain medications, minimize narcotic use - DVT prophylaxis (ASA 325mg BID x 6 weeks) - Ice/Elevation of the LLE and RLE - Elevate HOB, encourage oral intake - Appreciate medical management (Nutrition optimization, decubitus precautions heel/sacrum) - PT EVAL NWB LLE; WBAT RLE - Dispo planning
[2020-02-03 08:53] LABS: CALCIUM 9.9 mg/dL (8.5-10.1); POTASSIUM 3.7 mmol/L (3.5-5.1)
[2020-02-03 09:01] LABS: ALBUMIN 3.2 g/dl (3.4-5.0); BILIRUBIN,TOTAL 1.3 mg/dL (0.2-1); BLOOD UREA NITROGEN 8.2 mg/dL (7-18); CREATININE 0.7 mg/dL (0.55-1.3); TOT PROT 6.4 g/dl (6.4-8.2)
[2020-02-03] MEDS: oxyCODONE HCL 10 MG SUSTAINED ACTING TABLET PO SCH ×2 (09:57→21:11)
[2020-02-03] MEDS: LACTATED RINGERS SOLUTION 1,000 ML/1,000 ML INFUS.BAG IV SCH (10:37)
[2020-02-03] MEDS: ASPIRIN 325 MG ENTERIC COATED TABLET (FP) PO SCH ×2 (10:38→21:13)
--- NOTE | 2020-02-03 19:44 | PN ---
Progress Note, Physician Chief Complaint: Pt A&OX3; c/o pain restarting in left LE surgical site History of Present Illness: Ms. Merritt is a 54 y/o female w/ PMH significant for ?hypothyroidism and ?prediabetes. Pt was walking when she had a mechanical fall. Pt denies any LOC/VICKERS. Pt denies any head trauma. Pt presented to ER w/ increase pain in her ankles. XRAY of feet showed a Lt ankle fx. - Current Medication List Current Medications: Active Medications Aspirin (Ecotrin -) 325 mg PO BID [facility] Last Admin: 02/03/20 10:38 Dose: 325 mg Documented by: Fentanyl (Sublimaze Injection -) 50 mcg IVPUSH Q5M PRN PRN Reason: PAIN-PACU ORDER X 4 DOSES ONLY Lactated Ringer's (Lactated Ringers Solution) 1,000 ml in 1,000 mls @ 83 mls/hr IV ASDIR [facility] Last Admin: 02/03/20 10:37 Dose: 83 mls/hr Documented by: Morphine Sulfate (Morphine Sulfate) 4 mg IVPUSH Q6H PRN PRN Reason: PAIN LEVEL 4-6 Last Admin: 02/03/20 08:16 Dose: 4 mg Documented by: Oxycodone HCl (Roxicodone -) 10 mg PO Q3H PRN PRN Reason: PAIN LEVEL 7-10 Last Admin: 02/03/20 13:48 Dose: 10 mg Documented by: Oxycodone HCl (Roxicodone -) 5 mg PO Q3H PRN PRN Reason: PAIN LEVEL 1-3 Oxycodone HCl (Oxycontin -) 10 mg PO BID [facility] Stop: 02/05/20 14:16 Last Admin: 02/03/20 09:57 Dose: 10 mg Documented by: - Objective Vital Signs: Vital Signs Temperature 98.1 F 02/03/20 14:00 Pulse Rate 79 02/03/20 14:00 Respiratory Rate 18 02/03/20 14:00 Blood Pressure 131/79 02/03/20 14:00 O2 Sat by Pulse Oximetry (%) 96 02/03/20 14:00 Constitutional: Yes: Anxious Eyes: Yes: WNL HENT: Yes: WNL Neck: Yes: WNL Cardiovascular: Yes: WNL, S1, S2 Respiratory: Yes: WNL Gastrointestinal: Yes: Soft ...Rectal Exam: Yes: Deferred Genitourinary: No: Anuria Extremities: Yes: Other Edema: No Peripheral Pulses WNL: Yes Wound/Incision: Yes: Dressing Dry and Intact Neurological: Yes: WNL ...Motor Strength: WNL Psychiatric: Yes: WNL Labs: CBC, BMP 02/03/20 07:18 02/03/20 07:18 INR, PTT INR 1.03 (0.83-1.09) 02/01/20 13:30 Abnormal Lab Results 02/03/20 02/03/20 07:18 07:18 RBC 5.60 H Hgb 15.7 H Hct 47.6 H Lymphocytes % 7.8 L D Random Glucose 117 H Total Bilirubin 1.3 H Alkaline Phosphatase 224 H Albumin 3.2 L - ....Imaging Chest X-ray: Image Reviewed EKG: Image Reviewed Assessment/Plan 54 y/o female w/ PMH significant for ?hypothyroidism and ?prediabetes (glucose elevated at times; HGBA1c WNL), overweight. Pt was walking when she had a mechanical fall. Pt denies any LOC/VICKERS. Pt denies any head trauma. Pt presented to ER w/ increase pain in her ankles. XRAY of feet showed a Lt ankle fx. Repeated EKG WNL ECHO nl Patient has good exercise tolerance, in excess of 4.6 mets, no h/o of angina cad or any medical problems s/p distal fibula repair Wound care, pain management per surgical team. Maintain hydration. f/u lipids f/u TFTs (TSH elevated).
--- NOTE | 2020-02-03 20:45 | PN ---
Progress Note, Physician History of Present Illness: Pt unable to do physical therapy due to pain - Current Medication List Current Medications: Active Medications Aspirin (Ecotrin -) 325 mg PO BID [facility] Last Admin: 02/03/20 10:38 Dose: 325 mg Documented by: Fentanyl (Sublimaze Injection -) 50 mcg IVPUSH Q5M PRN PRN Reason: PAIN-PACU ORDER X 4 DOSES ONLY Lactated Ringer's (Lactated Ringers Solution) 1,000 ml in 1,000 mls @ 83 mls/hr IV ASDIR [facility] Last Admin: 02/03/20 10:37 Dose: 83 mls/hr Documented by: Morphine Sulfate (Morphine Sulfate) 4 mg IVPUSH Q6H PRN PRN Reason: PAIN LEVEL 4-6 Last Admin: 02/03/20 08:16 Dose: 4 mg Documented by: Oxycodone HCl (Roxicodone -) 10 mg PO Q3H PRN PRN Reason: PAIN LEVEL 7-10 Last Admin: 02/03/20 13:48 Dose: 10 mg Documented by: Oxycodone HCl (Roxicodone -) 5 mg PO Q3H PRN PRN Reason: PAIN LEVEL 1-3 Oxycodone HCl (Oxycontin -) 10 mg PO BID [facility] Stop: 02/05/20 14:16 Last Admin: 02/03/20 09:57 Dose: 10 mg Documented by: - Objective Vital Signs: Vital Signs Temperature 98.1 F 02/03/20 14:00 Pulse Rate 79 02/03/20 14:00 Respiratory Rate 18 02/03/20 14:00 Blood Pressure 131/79 02/03/20 14:00 O2 Sat by Pulse Oximetry (%) 96 02/03/20 14:00 Neck: Yes: WNL, Supple Cardiovascular: Yes: WNL, Regular Rate and Rhythm Respiratory: Yes: WNL, Regular, CTA Bilaterally Gastrointestinal: Yes: WNL, Normal Bowel Sounds, Soft Musculoskeletal: Yes: Other (LLE in cast) Labs: CBC, BMP 02/03/20 07:18 02/03/20 07:18 INR, PTT INR 1.03 (0.83-1.09) 02/01/20 13:30 Problem List - Problems (1) Closed left ankle fracture Assessment/Plan: S/P Lt ankle ORIF Decrease IVF Change to PO pain meds Will need to start therapy Code(s): S82.892A - OTH FRACTURE OF LEFT LOWER LEG, INIT FOR CLOS FX Qualifiers: Encounter type: initial encounter Qualified Code(s): S82.892A - Other fracture of left lower leg, initial encounter for closed fracture (2) Right ankle sprain Code(s): S93.401A - SPRAIN OF UNSPECIFIED LIGAMENT OF RIGHT ANKLE, INIT ENCNTR (3) Hypothyroidism Assessment/Plan: Tsh minimally elevated Code(s): E03.9 - HYPOTHYROIDISM, UNSPECIFIED (4) Prediabetes Assessment/Plan: HgA1c was 5.6 Code(s): R73.03 - PREDIABETES
[2020-02-03] MEDS ORDERED: PT OWN MED DRAWER 7, Y5N ONE (21:02)
[2020-02-03] MEDS ORDERED: DEXTROSE 5%-0.45% SALINE 1,000 ML IV SCH (23:45)
[2020-02-04] MEDS: oxyCODONE HCL 5 MG TABLET PO PRN ×4 (03:34→23:59)
[2020-02-04 08:21] LABS: BASO % 0.5 % (0-2.0); EOS % 1.7 % (0-4.5); HEMOGLOBIN 16.2 GM/dL (10.7-15.3); LYMPH % 17.7 % (8-40); MCH 28.6 pg (25.7-33.7); MCHC 33.1 g/dl (32.0-36.0); MEAN CELL VOLUME 86.4 fl (80-96); MEAN PLT VOLUME 9.7 fl (7.5-11.1); MONO % 10.9 % (3.8-10.2); NEUT % 69.2 % (42.8-82.8); PLATELET COUNT 137 K/MM3 (134-434); RBC 5.67 M/mm3 (3.60-5.2); RDW 13.5 % (11.6-15.6); WHITE BLOOD COUNT 6.5 K/mm3 (4.0-10.0)
[2020-02-04 08:34] LABS: ALBUMIN 3.2 g/dl (3.4-5.0); BILIRUBIN,TOTAL 0.8 mg/dL (0.2-1); BLOOD UREA NITROGEN 7.7 mg/dL (7-18); CREATININE 0.6 mg/dL (0.55-1.3); POTASSIUM 3.7 mmol/L (3.5-5.1); TOT PROT 6.5 g/dl (6.4-8.2)
[2020-02-04] MEDS ORDERED: PT OWN MED DRAWER 7, Y5N ONE ×3 (09:07→21:19)
[2020-02-04] MEDS: oxyCODONE HCL 10 MG SUSTAINED ACTING TABLET PO SCH ×2 (09:08→21:20)
[2020-02-04] MEDS: ASPIRIN 325 MG ENTERIC COATED TABLET (FP) PO SCH ×2 (09:09→21:22)
--- NOTE | 2020-02-04 09:54 | PN ---
Progress Note, Physician History of Present Illness: Pt is a 54 y/o female w/ PMH significant for ?hypothyroidism and prediabetes. Pt was walking when she had a mechanical fall. Pt denies any LOC/VICKERS. Pt denies any head trauma. Pt presented to ER w/ increase pain in her ankles. XRAY of feet showed a Lt ankle fx. h/o obtained via phone interpreter and translator. - Current Medication List Current Medications: Active Medications Aspirin (Ecotrin -) 325 mg PO BID [facility] Last Admin: 02/04/20 09:09 Dose: 325 mg Documented by: Fentanyl (Sublimaze Injection -) 50 mcg IVPUSH Q5M PRN PRN Reason: PAIN-PACU ORDER X 4 DOSES ONLY Dextrose/Sodium Chloride (D5-1/2ns -) 1,000 mls @ 50 mls/hr IV ASDIR [facility] Last Admin: 02/03/20 23:55 Dose: 50 mls/hr Documented by: Oxycodone HCl (Oxycontin -) 10 mg PO BID [facility] Stop: 02/05/20 14:16 Last Admin: 02/04/20 09:08 Dose: 10 mg Documented by: Oxycodone HCl (Roxicodone -) 10 mg PO Q6H PRN PRN Reason: PAIN LEVEL 6-10 Last Admin: 02/04/20 03:34 Dose: 10 mg Documented by: - Objective Vital Signs: Vital Signs Temperature 97.5 F L 02/04/20 06:00 Pulse Rate 67 02/04/20 06:00 Respiratory Rate 16 02/04/20 06:00 Blood Pressure 127/77 02/04/20 06:00 O2 Sat by Pulse Oximetry (%) 97 02/04/20 06:00 Eyes: Yes: WNL, Conjunctiva Clear, EOM Intact HENT: Yes: WNL, Atraumatic, Normocephalic Neck: Yes: WNL, Supple, Trachea Midline Cardiovascular: Yes: WNL, Regular Rate and Rhythm Respiratory: Yes: WNL, Regular, CTA Bilaterally Gastrointestinal: Yes: WNL, Normal Bowel Sounds Genitourinary: Yes: WNL Musculoskeletal: Yes: WNL Extremities: Yes: WNL Edema: No Integumentary: Yes: WNL Neurological: Yes: WNL, Alert, Oriented ...Motor Strength: WNL Psychiatric: Yes: WNL Labs: CBC, BMP 02/04/20 07:00 02/04/20 07:00 INR, PTT INR 1.03 (0.83-1.09) 02/01/20 13:30 Problem List - Problems (1) Ankle pain Code(s): M25.579 - PAIN IN UNSPECIFIED ANKLE AND JOINTS OF UNSPECIFIED FOOT Qualifiers: Chronicity: acute Laterality: bilateral Qualified Code(s): M25.571 - Pain in right ankle and joints of right foot; M25.572 - Pain in left ankle and joints of left foot (2) Closed left ankle fracture Code(s): S82.892A - OTH FRACTURE OF LEFT LOWER LEG, INIT FOR CLOS FX Qualifiers: Encounter type: initial encounter Qualified Code(s): S82.892A - Other fracture of left lower leg, initial encounter for closed fracture (3) Fall Code(s): W19.XXXA - UNSPECIFIED FALL, INITIAL ENCOUNTER Qualifiers: Encounter type: initial encounter Qualified Code(s): W19.XXXA - Unspecified fall, initial encounter (4) Hypothyroidism Code(s): E03.9 - HYPOTHYROIDISM, UNSPECIFIED (5) Prediabetes Code(s): R73.03 - PREDIABETES (6) Right ankle sprain Code(s): S93.401A - SPRAIN OF UNSPECIFIED LIGAMENT OF RIGHT ANKLE, INIT ENCNTR (7) Chest pain Code(s): R07.9 - CHEST PAIN, UNSPECIFIED Qualifiers: Chest pain type: unspecified Qualified Code(s): R07.9 - Chest pain, unspecified Assessment/Plan 54 y/o female w/ PMH significant for ?hypothyroidism and ?prediabetes (glucose elevated at times; HGBA1c WNL), overweight. Pt was walking when she had a mechanical fall. Pt denies any LOC/VICKERS. Pt denies any head trauma. Pt presented to ER w/ increase pain in her ankles. XRAY of feet showed a Lt ankle fx. Repeated EKG WNL ECHO nl s/p distal fibula repair Wound care, pain management per surgical team. Maintain hydration. f/u lipids f/u TFTs (TSH elevated).
[2020-02-04] MEDS ORDERED: DOCUSATE SODIUM 100 MG CAPSULE (FP) PO PRN (12:50)
[2020-02-04] MEDS ORDERED: SENNOSIDES 8.6MG TABLET (FP) PO PRN (12:50)
--- NOTE | 2020-02-04 13:50 | PN ---
Progress Note (short form) - Note Progress Note: ORTHOPEDIC SURGERY PROGRESS NOTE Department of Orthopedic Surgery SUBJECTIVE No acute events overnight. No complaints currently. Denies chest pain, shortness of breath, or calf pain. No nausea or vomiting. Tolerating oral intake. Pain control difficult overnight, but improving. Was able to participate with Physical Therapy today. PHYSICAL EXAMINATION General: Alert, oriented, cooperative and no distress. Left Lower Extremity: Dressing/splint intact; Skin intact, no lesions, rashes or ulcers noted. Muscle mass equal and symmetric to contralateral side. No atrophy noted. No masses or effusions noted. No tenderness to palpation. Full passive and active ROM of the knee and hip, free from pain. EHL/FHL motor intact; SILT distally; 2+ DP pulses; Cap refill brisk. DVT Exam: No evidence of DVT seen on physical exam; No cords or calf tenderness; No significant calf/ankle edema. Intake & Output 02/02/20 02/03/20 02/04/20 23:59 23:59 23:59 Intake Total 1601 320 600 Output Total 1200 Balance 401 320 600 Intake: IV 1281 LACTATED RINGERS SOLUTION 581 1,000 ml In 1,000 ml @ 83 mls/hr IV ASDIR [facility] Rx #:[id number] Oral 320 320 600 Output: Urine 1200 External Catheter 1200 Other: Voiding Method Bedpan Bedpan Bedpan # Unmeasured Voids External Catheter 0 Void 3 3 Bowel Movement No No No # Bowel Movements 0 0 Active Medications Generic Name Dose Route Start Last Admin Trade Name Freq PRN Reason Stop Dose Admin Aspirin 325 mg 02/03/20 10:00 02/04/20 09:09 Ecotrin - PO 325 mg BID [facility] Administration Docusate Sodium 100 mg 02/04/20 12:50 02/04/20 12:57 Colace - PO 100 mg Q8H PRN Administration CONSTIPATION Fentanyl 50 mcg 02/02/20 17:46 Sublimaze Injection - IVPUSH Q5M PRN PAIN-PACU ORDER X 4 DOSES ONLY Oxycodone HCl 10 mg 02/02/20 22:00 02/04/20 09:08 Oxycontin - PO 02/05/20 14:16 10 mg BID [facility] Administration Oxycodone HCl 10 mg 02/03/20 23:31 02/04/20 12:56 Roxicodone - PO 10 mg Q6H PRN Administration PAIN LEVEL 6-10 Senna 2 tab 02/04/20 12:50 Senna - PO HS PRN CONSTIPATION Vital Signs (last) Temp Pulse Resp BP Pulse Ox 98.3 F 83 18 137/95 95 02/04/20 10:00 02/04/20 10:00 02/04/20 10:00 02/04/20 10:00 02/04/20 10:00 Laboratory (coagulation) PT with INR 12.10 SEC (9.7-13.0) 02/01/20 13:30 Laboratory 02/04/20 07:00 02/04/20 07:00 ASSESSMENT AND PLAN Ms. Merritt is a 54 year old female s/p 1. Left Ankle ORIF POD 2, and 2. Right Ankle Sprain - Pain control: Transition to oral pain medications, minimize narcotic use - DVT prophylaxis (ASA 325mg BID x 6 weeks) - Ice/Elevation of the LLE and RLE - Elevate HOB, encourage oral intake - Appreciate medical management (Nutrition optimization, decubitus precautions heel/sacrum) - PT Daily; NWB LLE; WBAT RLE - Dispo planning
--- NOTE | 2020-02-04 15:03 | PN ---
Progress Note, Physician Chief Complaint: 24HR events -s/p distal fibula repair on 02/01 -Pt constipated, started on senna and colace History of Present Illness: 54 y/o female w/ no significant PMH sustained a mechanical fall while ambulating. Pt denies any LOC/VICKERS. Pt denies any head trauma. Pt presented to ER w/ increase pain in her ankles. XRAY of feet showed a Lt ankle fx. - Current Medication List Current Medications: Active Medications Aspirin (Ecotrin -) 325 mg PO BID [facility] Last Admin: 02/04/20 09:09 Dose: 325 mg Documented by: Docusate Sodium (Colace -) 100 mg PO Q8H PRN PRN Reason: CONSTIPATION Last Admin: 02/04/20 12:57 Dose: 100 mg Documented by: Fentanyl (Sublimaze Injection -) 50 mcg IVPUSH Q5M PRN PRN Reason: PAIN-PACU ORDER X 4 DOSES ONLY Oxycodone HCl (Oxycontin -) 10 mg PO BID [facility] Stop: 02/05/20 14:16 Last Admin: 02/04/20 09:08 Dose: 10 mg Documented by: Oxycodone HCl (Roxicodone -) 10 mg PO Q6H PRN PRN Reason: PAIN LEVEL 6-10 Last Admin: 02/04/20 12:56 Dose: 10 mg Documented by: Senna (Senna -) 2 tab PO HS PRN PRN Reason: CONSTIPATION - Objective Vital Signs: Vital Signs Temperature 98.3 F 02/04/20 10:00 Pulse Rate 83 02/04/20 10:00 Respiratory Rate 18 02/04/20 10:00 Blood Pressure 137/95 02/04/20 10:00 O2 Sat by Pulse Oximetry (%) 95 02/04/20 10:00 Constitutional: Yes: No Distress, Calm Eyes: Yes: Conjunctiva Clear HENT: Yes: Atraumatic, Normocephalic Neck: Yes: Supple Cardiovascular: Yes: Regular Rate and Rhythm Respiratory: Yes: Regular, CTA Bilaterally Gastrointestinal: Yes: Soft, Abdomen, Obese, Hypoactive Bowel Sounds Musculoskeletal: Yes: WNL Extremities: Yes: WNL Edema: LLE: Trace Peripheral Pulses WNL: Yes Peripheral Pulses: Left Radial: 2+, Right Radial: 2+ Integumentary: Yes: WNL Wound/Incision: Yes: Clean/Dry Neurological: Yes: Alert, Oriented ...Motor Strength: WNL Psychiatric: Yes: Alert, Oriented Labs: CBC, BMP 02/04/20 07:00 02/04/20 07:00 INR, PTT INR 1.03 (0.83-1.09) 02/01/20 13:30 Problem List - Problems (1) Closed left ankle fracture Assessment/Plan: s/p Left ankle ORIF -pain management with oxycodone -DVT PPX with ASA BID PT evaluation Code(s): S82.892A - OTH FRACTURE OF LEFT LOWER LEG, INIT FOR CLOS FX Qualifiers: Encounter type: initial encounter Qualified Code(s): S82.892A - Other fracture of left lower leg, initial encounter for closed fracture (2) Hypothyroidism Assessment/Plan: pt with elevated TSH and normal Free T4. Needs repeat levels in 2-4 weeks. Code(s): E03.9 - HYPOTHYROIDISM, UNSPECIFIED Impression/Plan Impression/Plan: Bowel regimen with senna and colace regular diet Dispo: [facility] obtaining authorization for rehab placement Visit type - Emergency Visit Emergency Visit: Yes ED Registration Date: 01/31/20 Care time: The patient presented to the Emergency Department on the above date and was hospitalized for further evaluation of their emergent condition. - New Patient This patient is new to me today: Yes Date on this admission: 02/04/20 - Critical Care Critical Care patient: No - Discharge Referral Referred to [facility] Med P.C.: No
[2020-02-05] MEDS: oxyCODONE HCL 5 MG TABLET PO PRN ×3 (07:38→21:05)
[2020-02-05 08:17] LABS: HEMATOCRIT 48.7 % (32.4-45.2); HEMOGLOBIN 16.4 GM/dL (10.7-15.3); MCHC 33.7 g/dl (32.0-36.0); MEAN CELL VOLUME 86.1 fl (80-96); MEAN PLT VOLUME 9.4 fl (7.5-11.1); PLATELET COUNT 163 K/MM3 (134-434); RBC 5.65 M/mm3 (3.60-5.2); RDW 13.3 % (11.6-15.6)
[2020-02-05 08:23] LABS: CREATININE 0.6 mg/dL (0.55-1.3); MAGNESIUM 2.5 mg/dL (1.8-2.4)
--- NOTE | 2020-02-05 09:04 | PN ---
Progress Note (short form) - Note Progress Note: ORTHOPEDIC SURGERY PROGRESS NOTE Department of Orthopedic Surgery SUBJECTIVE No acute events overnight. No complaints currently. Denies chest pain, shortness of breath, or calf pain. No nausea or vomiting. Tolerating oral intake. Pain control improved. Was able to participate with Physical Therapy. PHYSICAL EXAMINATION General: Alert, oriented, cooperative and no distress. Left Lower Extremity: Dressing/splint intact; Skin intact, no lesions, rashes or ulcers noted. Muscle mass equal and symmetric to contralateral side. No atrophy noted. No masses or effusions noted. No tenderness to palpation. Full passive and active ROM of the knee and hip, free from pain. EHL/FHL motor intact; SILT distally; 2+ DP pulses; Cap refill brisk. DVT Exam: No evidence of DVT seen on physical exam; No cords or calf tenderness; No significant calf/ankle edema. Intake & Output 02/03/20 02/04/20 02/05/20 23:59 23:59 23:59 Intake Total 320 1400 420 Balance 320 1400 420 Intake: IV 500 D5-1/2Ns - 1,000 ml @ 50 500 mls/hr IV ASDIR NEGRITO Rx#: [id number] Oral 320 900 420 Other: Voiding Method Bedpan Bedpan Bedpan # Unmeasured Voids External Catheter 0 0 Void 3 3 2 Bowel Movement No No No # Bowel Movements 0 0 Active Medications Generic Name Dose Route Start Last Admin Trade Name Freq PRN Reason Stop Dose Admin Aspirin 325 mg 02/03/20 10:00 02/04/20 21:22 Ecotrin - PO 325 mg BID [facility] Administration Docusate Sodium 100 mg 02/04/20 12:50 02/04/20 12:57 Colace - PO 100 mg Q8H PRN Administration CONSTIPATION Fentanyl 50 mcg 02/02/20 17:46 Sublimaze Injection - IVPUSH Q5M PRN PAIN-PACU ORDER X 4 DOSES ONLY Oxycodone HCl 10 mg 02/02/20 22:00 02/04/20 21:20 Oxycontin - PO 02/05/20 14:16 10 mg BID [facility] Administration Oxycodone HCl 10 mg 02/03/20 23:31 02/05/20 07:38 Roxicodone - PO 10 mg Q6H PRN Administration PAIN LEVEL 6-10 Senna 2 tab 02/04/20 12:50 Senna - PO HS PRN CONSTIPATION Vital Signs (last) Temp Pulse Resp BP Pulse Ox 98.7 F 76 20 110/56 L 99 02/05/20 01:00 02/05/20 01:00 02/05/20 01:00 02/05/20 01:00 02/05/20 01:00 Laboratory (coagulation) PT with INR 12.10 SEC (9.7-13.0) 02/01/20 13:30 Laboratory 02/05/20 07:10 02/05/20 07:10 ASSESSMENT AND PLAN Ms. Merritt is a 54 year old female s/p 1. Left Ankle ORIF POD 3, and 2. Right Ankle Sprain - Pain control: Transition to oral pain medications, minimize narcotic use - DVT prophylaxis (ASA 325mg BID x 6 weeks) - Ice/Elevation of the LLE and RLE - Elevate HOB, encourage oral intake - Appreciate medical management (Nutrition optimization, decubitus precautions heel/sacrum) - PT Daily; NWB LLE; WBAT RLE - Dispo planning
[2020-02-05] MEDS ORDERED: ONDANSETRON 8 MG TABLET (FP) PO PRN (09:05)
[2020-02-05] MEDS ORDERED: PT OWN MED DRAWER 7, Y5N ONE ×2 (10:44→20:59)
[2020-02-05] MEDS: oxyCODONE HCL 10 MG SUSTAINED ACTING TABLET PO SCH (10:56)
[2020-02-05] MEDS: ASPIRIN 325 MG ENTERIC COATED TABLET (FP) PO SCH ×2 (10:59→21:05)
--- NOTE | 2020-02-05 17:07 | PN ---
Progress Note, Physician Chief Complaint: -s/p distal fibula repair on 02/01 -Pt constipated, started on senna and colace History of Present Illness: History of Present Illness: 54 y/o female w/ no significant PMH sustained a mechanical fall while ambulating. Pt denies any LOC/VICKERS. Pt denies any head trauma. Pt presented to ER w/ increase pain in her ankles. XRAY of feet showed a Lt ankle fx. - Current Medication List Current Medications: Active Medications Aspirin (Ecotrin -) 325 mg PO BID [facility] Last Admin: 02/05/20 10:59 Dose: 325 mg Documented by: Docusate Sodium (Colace -) 100 mg PO Q8H PRN PRN Reason: CONSTIPATION Last Admin: 02/04/20 12:57 Dose: 100 mg Documented by: Fentanyl (Sublimaze Injection -) 50 mcg IVPUSH Q5M PRN PRN Reason: PAIN-PACU ORDER X 4 DOSES ONLY Ondansetron HCl (Zofran -) 8 mg PO Q8H PRN PRN Reason: NAUSEA Last Admin: 02/05/20 10:56 Dose: 8 mg Documented by: Oxycodone HCl (Roxicodone -) 10 mg PO Q6H PRN PRN Reason: PAIN LEVEL 6-10 Last Admin: 02/05/20 14:34 Dose: 10 mg Documented by: Senna (Senna -) 2 tab PO HS PRN PRN Reason: CONSTIPATION - Objective Vital Signs: Vital Signs Temperature 98.5 F 02/05/20 13:00 Pulse Rate 67 02/05/20 13:00 Respiratory Rate 18 02/05/20 13:00 Blood Pressure 129/82 02/05/20 13:00 O2 Sat by Pulse Oximetry (%) 99 02/05/20 13:00 Constitutional: Yes: Well Nourished, No Distress, Calm Eyes: Yes: WNL, Conjunctiva Clear, EOM Intact HENT: Yes: WNL, Atraumatic, Normocephalic Neck: Yes: WNL, Supple, Trachea Midline, Tenderness Cardiovascular: Yes: Regular Rate and Rhythm Respiratory: Yes: WNL, Regular, CTA Bilaterally Gastrointestinal: Yes: WNL, Normal Bowel Sounds, Soft Musculoskeletal: Yes: WNL Extremities: Yes: WNL Edema: No Peripheral Pulses WNL: Yes Integumentary: Yes: WNL Neurological: Yes: WNL, Alert, Oriented ...Motor Strength: WNL Psychiatric: Yes: WNL, Alert, Oriented Labs: CBC, BMP 02/05/20 07:10 02/05/20 07:10 INR, PTT INR 1.03 (0.83-1.09) 02/01/20 13:30 Impression/Plan Impression/Plan: History of Present Illness: 54 y/o female with no significant PMH sustained a mechanical fall while ambulating. Pt denies any LOC/VICKERS. Pt denies any head trauma. Pt presented to ER w/ increase pain in her ankles. XRAY of feet showed a Lt ankle fracture. - Problems (1) Closed left ankle fracture Assessment/Plan: s/p Left ankle ORIF on 02/01 -pain management with oxycodone (minimize use of narcotics) -DVT PPX with ASA BID x 6 weeks as per orthopedics PT evaluation Code(s): S82.892A - OTH FRACTURE OF LEFT LOWER LEG, INIT FOR CLOS FX Qualifiers: Encounter type: initial encounter Qualified Code(s): S82.892A - Other fracture of left lower leg, initial encounter for closed fracture (2) Hypothyroidism Assessment/Plan: pt with elevated TSH and normal Free T4. Needs repeat levels in 2-4 weeks. Code(s): E03.9 - HYPOTHYROIDISM, UNSPECIFIED Impression/Plan Impression/Plan: Bowel regimen with senna and colace regular diet Dispo: [facility] obtaining authorization for rehab placement Visit type - Emergency Visit Emergency Visit: Yes ED Registration Date: 01/31/20 Care time: The patient presented to the Emergency Department on the above date and was hospitalized for further evaluation of their emergent condition. - New Patient This patient is new to me today: No - Critical Care Critical Care patient: No - Discharge Referral Referred to [facility] Med P.C.: No
[2020-02-05] MEDS: POLYETHYLENE GLYCOL 3350 119 GM BTL PO SCH (17:44)
[2020-02-06] MEDS: oxyCODONE HCL 5 MG TABLET PO PRN ×4 (02:44→17:02)
[2020-02-06] MEDS ORDERED: PT OWN MED DRAWER 7, Y5N ONE (10:14)
[2020-02-06] MEDS: POLYETHYLENE GLYCOL 3350 119 GM BTL PO SCH (10:16)
[2020-02-06] MEDS: ASPIRIN 325 MG ENTERIC COATED TABLET (FP) PO SCH ×2 (10:16→21:06)
--- NOTE | 2020-02-06 10:28 | PN ---
Physical Exam: SUBJECTIVE: Patient seen and examined 02/06/20: Reporting a significant amount of pain to the left ankle, states cant get comfortable due to the pain No cp,s ob, n/v/f/c voiding fine, andi po fine OBJECTIVE: Vital Signs Period Temp Pulse Resp BP Sys/Pimentel Pulse Ox Last 24 Hr 98.1 F-98.5 F 66-73 16-20 123-145/78-88 94-99 GENERAL: The patient is awake, alert, and fully oriented, in no acute distress. HEAD: Normal with no signs of trauma. EYES: extraocular movements intact, sclera anicteric, conjunctiva clear. No ptosis. ENT: Ears normal, nares patent, oropharynx clear without exudates, moist mucous membranes. NECK: Trachea midline, full range of motion, supple. LUNGS: Breath sounds equal, clear to auscultation bilaterally, no wheezes, no crackles, no accessory muscle use. HEART: Regular rate and rhythm, S1, S2 without murmur, rub or gallop. ABDOMEN: Soft, nontender, nondistended, normoactive bowel sounds, no guarding, no rebound, no hepatosplenomegaly, no masses. EXTREMITIES: 2+ pulses, warm, well-perfused, Left ankle dressing c/d/i NEUROLOGICAL: Cranial nerves II through XII grossly intact. Normal speech, gait not observed. PSYCH: Normal mood, normal affect. SKIN: Warm, dry, normal turgor, no rashes or lesions noted Active Medications Generic Name Dose Route Start Last Admin Trade Name Freq PRN Reason Stop Dose Admin Aspirin 325 mg 02/03/20 10:00 02/06/20 10:16 Ecotrin - PO 325 mg BID [facility] Administration Docusate Sodium 100 mg 02/04/20 12:50 02/04/20 12:57 Colace - PO 100 mg Q8H PRN Administration CONSTIPATION Ondansetron HCl 8 mg 02/05/20 09:05 02/05/20 10:56 Zofran - PO 8 mg Q8H PRN Administration NAUSEA Oxycodone HCl 5 mg 02/05/20 19:58 02/06/20 08:33 Roxicodone - PO 5 mg Q6H PRN Administration PAIN LEVEL 6-10 Oxycodone HCl 10 mg 02/06/20 10:27 Roxicodone - PO Q4H PRN PAIN LEVEL 7 - 10 Polyethylene Glycol 17 gm 02/05/20 17:15 02/06/20 10:16 Miralax (For Daily Use) - PO 17 grams DAILY [facility] Administration Senna 2 tab 02/04/20 12:50 Senna - PO HS PRN CONSTIPATION ASSESSMENT/PLAN: 54 y/o female with no significant PMH sustained a mechanical fall while ambulating. Pt denies any LOC/VICKERS. Pt denies any head trauma. Pt presented to ER w/ increase pain in her ankles. XRAY of feet showed a Lt ankle fracture. - Problems (1) Closed left ankle fracture Assessment/Plan: s/p Left ankle ORIF on 02/01 -pain management with oxycodone, increased dose today due to pain -DVT PPX with ASA BID x 6 weeks as per orthopedics PT evaluation Code(s): S82.892A - OTH FRACTURE OF LEFT LOWER LEG, INIT FOR CLOS FX Qualifiers: Encounter type: initial encounter Qualified Code(s): S82.892A - Other fracture of left lower leg, initial encounter for closed fracture (2) Hypothyroidism Assessment/Plan: pt with elevated TSH and normal Free T4. Needs repeat levels in 2-4 weeks. Subclinical Code(s): E03.9 - HYPOTHYROIDISM, UNSPECIFIED (3) DVT prophy - ASA 325mg bid x 6 weeks total DC planning if painc ontrolled f/u with [facility] Visit type - Emergency Visit Emergency Visit: Yes ED Registration Date: 01/31/20 Care time: The patient presented to the Emergency Department on the above date and was hospitalized for further evaluation of their emergent condition. - New Patient This patient is new to me today: Yes Date on this admission: 02/06/20 - Critical Care Critical Care patient: No - Discharge Referral Referred to [facility] Med P.C.: No
--- NOTE | 2020-02-06 11:25 | PN ---
Progress Note (short form) - Note Progress Note: ORTHOPEDIC SURGERY PROGRESS NOTE Department of Orthopedic Surgery SUBJECTIVE No acute events overnight. No complaints currently. Denies chest pain, shortness of breath, or calf pain. No nausea or vomiting. Tolerating oral intake. Pain control improved. Was able to participate with Physical Therapy. PHYSICAL EXAMINATION General: Alert, oriented, cooperative and no distress. Left Lower Extremity: Dressing/splint intact; Skin intact, no lesions, rashes or ulcers noted. Muscle mass equal and symmetric to contralateral side. No atrophy noted. No masses or effusions noted. No tenderness to palpation. Full passive and active ROM of the knee and hip, free from pain. EHL/FHL motor intact; SILT distally; 2+ DP pulses; Cap refill brisk. DVT Exam: No evidence of DVT seen on physical exam; No cords or calf tenderness; No significant calf/ankle edema. Intake & Output 02/04/20 02/05/20 02/06/20 23:59 23:59 23:59 Intake Total 1400 470 50 Balance 1400 470 50 Intake: IV 500 D5-1/2Ns - 1,000 ml @ 50 500 mls/hr IV ASDIR NEGRITO Rx#: [id number] Oral 900 470 50 Other: Voiding Method Bedpan Bedpan Bedpan # Unmeasured Voids External Catheter 0 0 Void 3 2 1 Bowel Movement No No No # Bowel Movements 0 Active Medications Generic Name Dose Route Start Last Admin Trade Name Freq PRN Reason Stop Dose Admin Aspirin 325 mg 02/03/20 10:00 02/06/20 10:16 Ecotrin - PO 325 mg BID [facility] Administration Docusate Sodium 100 mg 02/04/20 12:50 02/04/20 12:57 Colace - PO 100 mg Q8H PRN Administration CONSTIPATION Ondansetron HCl 8 mg 02/05/20 09:05 02/05/20 10:56 Zofran - PO 8 mg Q8H PRN Administration NAUSEA Oxycodone HCl 5 mg 02/05/20 19:58 02/06/20 08:33 Roxicodone - PO 5 mg Q6H PRN Administration PAIN LEVEL 6-10 Oxycodone HCl 10 mg 02/06/20 10:27 Roxicodone - PO Q4H PRN PAIN LEVEL 7 - 10 Polyethylene Glycol 17 gm 02/05/20 17:15 02/06/20 10:16 Miralax (For Daily Use) - PO 17 grams DAILY [facility] Administration Senna 2 tab 02/04/20 12:50 Senna - PO HS PRN CONSTIPATION Vital Signs (last) Temp Pulse Resp BP Pulse Ox 98.4 F 73 20 123/78 96 02/06/20 09:00 02/06/20 09:00 02/06/20 09:00 02/06/20 09:00 02/06/20 09:00 Laboratory (coagulation) PT with INR 12.10 SEC (9.7-13.0) 02/01/20 13:30 Laboratory 02/05/20 07:10 02/05/20 07:10 ASSESSMENT AND PLAN Ms. Merritt is a 54 year old female s/p 1. Left Ankle ORIF POD 4, and 2. Right Ankle Sprain - Pain control: Transition to oral pain medications, minimize narcotic use - DVT prophylaxis (ASA 325mg BID x 6 weeks) - Ice/Elevation of the LLE and RLE - Elevate HOB, encourage oral intake - Appreciate medical management (Nutrition optimization, decubitus precautions heel/sacrum) - PT Daily; NWB LLE; WBAT RLE - Dispo planning - Follow up in my office Post Op Day 14 for suture removal. Date and time labeled on her post operative instruction sheet in chart. - Call [phone] for appointment
[2020-02-06] MEDS ORDERED: oxyCODONE HCL 5 MG TABLET PO PRN (11:36)
[2020-02-07] MEDS: oxyCODONE HCL 5 MG TABLET PO PRN ×2 (00:58→09:26)
[2020-02-07] MEDS ORDERED: PT OWN MED DRAWER 7, Y5N ONE (09:23)
[2020-02-07] MEDS: ASPIRIN 325 MG ENTERIC COATED TABLET (FP) PO SCH (09:25)
[2020-02-07] MEDS: POLYETHYLENE GLYCOL 3350 119 GM BTL PO SCH (09:26)
[2020-02-07 09:33] VITALS: BP 123/84; PULSE 72; TEMP 97.9
--- NOTE | 2020-02-07 16:05 | DS ---
Physical Examination Vital Signs: Vital Signs Temperature 97.9 F 02/07/20 09:32 Pulse Rate 72 02/07/20 09:32 Respiratory Rate 18 02/07/20 09:32 Blood Pressure 123/84 02/07/20 09:32 O2 Sat by Pulse Oximetry (%) 95 02/07/20 09:32 Labs: CBC, BMP 02/05/20 07:10 02/05/20 07:10 Discharge Summary Problems reviewed: Yes Reason For Visit: UNABLE TO INITIATE GAIT, FRACTURE OF LEFT ANKLE Current Active Problems Ankle pain (Acute) Closed left ankle fracture (Acute) Fall (Acute) Hypothyroidism (Acute) Prediabetes (Acute) Right ankle sprain (Acute) Hospital Course: Pt is a 54 y/o female w/ PMH significant for hypothyroidism(not on any meds) who presented to ER after a fall. Pt had fx Lt ankle and Rt ankle sprain. pt subse quently underwent Lt ankle ORIF and tolerated surgery fine. Pt has started physical therapy Pt now ready for DC to SNF for further rehab. pt to follow up with orthopedist(Dr Garcia) in 2 weeks Condition: Good - Instructions Diet, Activity, Other Instructions: Regular diet Disposition: [facility] - Home Medications Comprehensive Discharge Medication List: Ambulatory Orders Aspirin Coated [Ecotrin -] 325 mg PO BID tablet. 02/07/20 Docusate Sodium [Colace -] 100 mg PO Q8H PRN capsule 02/07/20 Ondansetron [Zofran -] 8 mg PO Q8H PRN tablet 02/07/20 Polyethylene Glycol 3350 [Miralax 119 gm Btl -] 17 gm PO DAILY bottle 02/07/20 Sennosides [Senna -] 2 tab PO HS PRN tablet 02/07/20 oxyCODONE HCL [Roxicodone -] 5 mg PO Q6H PRN tablet 02/07/20
--- NOTE | 2020-02-07 16:52 | PN ---
Progress Note, Physician History of Present Illness: Pt is a 54 y/o female w/ PMH significant for ?hypothyroidism and prediabetes. Pt was walking when she had a mechanical fall. Pt denies any LOC/VICKERS. Pt denies any head trauma. Pt presented to ER w/ increase pain in her ankles. XRAY of feet showed a Lt ankle fx. h/o obtained via phone parts interpreter. - Current Medication List Current Medications: Active Medications Aspirin (Ecotrin -) 325 mg PO BID [facility] Last Admin: 02/07/20 09:25 Dose: 325 mg Documented by: Docusate Sodium (Colace -) 100 mg PO Q8H PRN PRN Reason: CONSTIPATION Last Admin: 02/04/20 12:57 Dose: 100 mg Documented by: Ondansetron HCl (Zofran -) 8 mg PO Q8H PRN PRN Reason: NAUSEA Last Admin: 02/05/20 10:56 Dose: 8 mg Documented by: Oxycodone HCl (Roxicodone -) 10 mg PO Q4H PRN PRN Reason: PAIN LEVEL 7 - 10 Last Admin: 02/07/20 09:26 Dose: 10 mg Documented by: Oxycodone HCl (Roxicodone -) 5 mg PO Q6H PRN PRN Reason: PAIN LEVEL 4 - 6 Polyethylene Glycol (Miralax (For Daily Use) -) 17 gm PO DAILY [facility] Last Admin: 02/07/20 09:26 Dose: 17 grams Documented by: Senna (Senna -) 2 tab PO HS PRN PRN Reason: CONSTIPATION Last Admin: 02/07/20 00:58 Dose: 2 tab Documented by: - Objective Vital Signs: Vital Signs Temperature 97.9 F 02/07/20 09:32 Pulse Rate 72 02/07/20 09:32 Respiratory Rate 18 02/07/20 09:32 Blood Pressure 123/84 02/07/20 09:32 O2 Sat by Pulse Oximetry (%) 95 02/07/20 09:32 Eyes: Yes: WNL, Conjunctiva Clear, EOM Intact HENT: Yes: WNL, Atraumatic, Normocephalic Neck: Yes: WNL, Supple, Trachea Midline Cardiovascular: Yes: WNL, Regular Rate and Rhythm Respiratory: Yes: WNL, Regular, CTA Bilaterally Gastrointestinal: Yes: WNL, Normal Bowel Sounds Genitourinary: Yes: WNL Musculoskeletal: Yes: WNL Extremities: Yes: WNL Edema: No Integumentary: Yes: WNL Neurological: Yes: WNL, Alert, Oriented ...Motor Strength: WNL Psychiatric: Yes: WNL Labs: CBC, BMP 02/05/20 07:10 02/05/20 07:10 INR, PTT INR 1.03 (0.83-1.09) 02/01/20 13:30 Problem List - Problems (1) Ankle pain Code(s): M25.579 - PAIN IN UNSPECIFIED ANKLE AND JOINTS OF UNSPECIFIED FOOT Qualifiers: Chronicity: acute Laterality: bilateral Qualified Code(s): M25.571 - Pain in right ankle and joints of right foot; M25.572 - Pain in left ankle and joints of left foot (2) Closed left ankle fracture Code(s): S82.892A - OTH FRACTURE OF LEFT LOWER LEG, INIT FOR CLOS FX Qualifiers: Encounter type: initial encounter Qualified Code(s): S82.892A - Other fracture of left lower leg, initial encounter for closed fracture (3) Fall Code(s): W19.XXXA - UNSPECIFIED FALL, INITIAL ENCOUNTER Qualifiers: Encounter type: initial encounter Qualified Code(s): W19.XXXA - Unspecified fall, initial encounter (4) Hypothyroidism Code(s): E03.9 - HYPOTHYROIDISM, UNSPECIFIED (5) Prediabetes Code(s): R73.03 - PREDIABETES (6) Right ankle sprain Code(s): S93.401A - SPRAIN OF UNSPECIFIED LIGAMENT OF RIGHT ANKLE, INIT ENCNTR (7) Chest pain Code(s): R07.9 - CHEST PAIN, UNSPECIFIED Qualifiers: Chest pain type: unspecified Qualified Code(s): R07.9 - Chest pain, u nspecified Assessment/Plan 54 y/o female w/ PMH significant for ?hypothyroidism and ?prediabetes (glucose elevated at times; HGBA1c WNL), overweight. Pt was walking when she had a mechanical fall. Pt denies any LOC/VICKERS. Pt denies any head trauma. Pt presented to ER w/ increase pain in her ankles. XRAY of feet showed a Lt ankle fx. Repeated EKG WNL ECHO nl s/p distal fibula repair Wound care, pain management per surgical team. Maintain hydration. f/u lipids f/u TFTs (TSH elevated).
== END 2020-02-07 18:48 | disposition home or self-care (01) | DRG 313 ==
LOC: JER 20:40 → JERBED 23:58 → J5S 02-01 15:13 → J6S 02-02 15:34
PROVIDERS: ADMIT Internal Medicine; ATTEND Internal Medicine
PROC: 0QSH04Z Reposition Left Tibia with Internal Fixation Device, Open Approach (ICD-10-PCS; 2020-02-02)
PROC: 0QSK04Z Reposition Left Fibula with Internal Fixation Device, Open Approach (ICD-10-PCS; principal; 2020-02-02 14:00)
DX: S82.402A Unspecified fracture of shaft of left fibula, initial encounter for closed fracture (principal); S82.52XA Displaced fracture of medial malleolus of left tibia, initial encounter for closed fracture; S93.401A Sprain of unspecified ligament of right ankle, initial encounter; R73.03 Prediabetes; E03.9 Hypothyroidism, unspecified; R07.9 Chest pain, unspecified; K59.00 Constipation, unspecified; W17.89XA Other fall from one level to another, initial encounter; Y93.89 Activity, other specified; Y92.89 Other specified places as the place of occurrence of the external cause; Y99.8 Other external cause status
CPT/HCPCS: 36415; 71045-TC-FY; 73590-TC-LT-FY; 73610-TC-LT-FY; 73610-TC-RT-FY; 73630-TC-LT; 73630-TC-RT-FY; 76000-TC-FY; 80048; 80053; 80061; 81003; 83036; 83721; 83735; 84439; 84443; 85025; 85027; 85610; 86850; 86900; 86901; 93005; 93010; 93306-TC; 94010; 94760; 97116-GP; 99285-25; J1644; U0003

== ENCOUNTER 2021-11-08 18:54 | Inpatient (IN) | payer OTHER ==
[2021-11-08 19:03] VITALS: BMI 28.8
[2021-11-08 21:07] LABS: BASO % 0.6 % (0-2.0); EOS % 2.5 % (0-4.5); HEMATOCRIT 42.7 % (32.4-45.2); HEMOGLOBIN 14.2 GM/dL (10.7-15.3); LYMPH % 15.5 % (8-40); MCH 27.6 pg (25.7-33.7); MCHC 33.3 g/dl (32.0-36.0); MEAN PLT VOLUME 9.4 fl (7.5-11.1); MONO % 9.1 % (3.8-10.2); NEUT % 72.3 % (42.8-82.8); PLATELET COUNT 184 10^3/uL (134-434); RBC 5.14 M/mm3 (3.60-5.2); RDW 13.1 % (11.6-15.6); WHITE BLOOD COUNT 6.7 K/mm3 (4.0-10.0)
[2021-11-08 21:28] LABS: ALBUMIN 3.4 g/dl (3.4-5.0); CALCIUM 8.1 mg/dL (8.5-10.1); MAGNESIUM 1.9 mg/dL (1.8-2.4)
[2021-11-08 21:31] LABS: CREATININE 0.6 mg/dL (0.55-1.3); PHOSPHOROUS 8.8 mg/dL (2.5-4.9)
[2021-11-08 21:33] LABS: BILIRUBIN,TOTAL 0.4 mg/dL (0.2-1); TOT PROT 6.3 g/dl (6.4-8.2)
[2021-11-08] MEDS ORDERED: CALCIUM GLUCONATE 10% - 1,000 MG/10 ML VIAL IVPUSH ONE (23:28)
[2021-11-08] MEDS ORDERED: CALCIUM GLUCONATE 10% - 1,000 MG/10 ML VIAL ONE (23:34)
[2021-11-09 00:43] LABS: PH,URINE 6.5 (5.0-8.0); URINE APPEARANCE CLEAR; URINE BILIRUBIN NEGATIVE (NEGATIVE); URINE COLOR YELLOW; URINE GLUCOSE (UA) NEGATIVE (NEGATIVE); URINE KETONE NEGATIVE (NEGATIVE); URINE PROTEIN NEGATIVE (NEGATIVE)
[2021-11-09 00:44] LABS: URINE LEUK ESTERASE NEGATIVE (NEGATIVE); URINE NITRITE NEGATIVE (NEGATIVE); URINE UROBILINOGEN 0.2 mg/dL (0.2-1.0)
[2021-11-09] MEDS ORDERED: DEXTROSE 5%-0.45% SALINE 1,000 ML IV SCH (09:45)
[2021-11-09 10:53] LABS: BASO % 0.7 % (0-2.0); EOS % 3.2 % (0-4.5); HEMATOCRIT 42.6 % (32.4-45.2); HEMOGLOBIN 14.4 GM/dL (10.7-15.3); LYMPH % 16.6 % (8-40); MCHC 33.9 g/dl (32.0-36.0); MEAN CELL VOLUME 82.7 fl (80-96); MEAN PLT VOLUME 9.1 fl (7.5-11.1); MONO % 8.7 % (3.8-10.2); NEUT % 70.8 % (42.8-82.8); PLATELET COUNT 165 10^3/uL (134-434); RBC 5.14 M/mm3 (3.60-5.2); WHITE BLOOD COUNT 4.9 K/mm3 (4.0-10.0)
[2021-11-09] MEDS: POLYETHYLENE GLYCOL (HEALTHYLAX) 3350 17 GM PACKET PO SCH (11:00)
[2021-11-09] MEDS ORDERED: DOCUSATE SODIUM 100 MG CAPSULE (FP) PO PRN (11:02)
[2021-11-09 11:15] LABS: ALBUMIN 3.4 g/dl (3.4-5.0); BLOOD UREA NITROGEN 12.4 mg/dL (7-18)
[2021-11-09 11:18] LABS: CREATININE 0.6 mg/dL (0.55-1.3)
[2021-11-09 11:19] LABS: BILIRUBIN,TOTAL 0.9 mg/dL (0.2-1); TOT PROT 6.2 g/dl (6.4-8.2)
[2021-11-09] MEDS: ASPIRIN 325 MG ENTERIC COATED TABLET (FP) PO SCH ×2 (12:22→21:36)
[2021-11-09] MEDS ORDERED: AZITHROMYCIN IVPB 500 MG/250 ML BAG IVPB ONE (13:29)
[2021-11-09] MEDS ORDERED: CALCIUM GLUCONATE 10% - 1,000 MG/10 ML VIAL IVPB SCH (13:30)
[2021-11-09] MEDS ORDERED: CALCITRIOL 0.25 MCG CAPSULE (FP) PO SCH (13:30)
[2021-11-09] MEDS ORDERED: ERGOCALCIFEROL (VIT D2) 50,000 UNIT (1.25 MG) CAPSULE PO ONE (13:56)
[2021-11-09] MEDS ORDERED: cefTRIAXone SODIUM 1 GM VIAL ONE (14:47)
[2021-11-09] MEDS ORDERED: DEXTROSE 5%-WATER - 50 ML IVPB ONE (14:47)
[2021-11-09] MEDS ORDERED: CALCIUM GLUCONATE IN NACL 1 GM/50 ML BAG IVPB SCH (15:00)
[2021-11-09] MEDS: CEFTRIAXONE 1 GM in DEXTROSE 5%-WATER - 50 ML IVPB SCH (15:30)
[2021-11-09] MEDS: CALCIUM CARBONATE 650 MG TABLET PO SCH ×3 (15:33→21:36)
[2021-11-09] MEDS: CALCITRIOL 0.25 MCG CAPSULE (FP) PO SCH ×2 (15:39→22:56)
[2021-11-09] MEDS: CALCIUM GLUCONATE IN NACL 1 GM/50 ML BAG IVPB SCH ×2 (18:30→20:24)
[2021-11-09 20:06] LABS: CHLORIDE 103 mmol/L (98-107); SODIUM 140 mmol/L (136-145)
[2021-11-09 20:09] LABS: ALBUMIN 3.2 g/dl (3.4-5.0); ANION GAP 7 MMOL/L (8-16); BLOOD UREA NITROGEN 10.7 mg/dL (7-18); CO2 30 mmol/L (21-32); GLUCOSE,RANDOM 128 mg/dL (74-106)
[2021-11-09 20:12] LABS: CREATININE 0.7 mg/dL (0.55-1.3); SGOT/AST 21 U/L (15-37); SGPT/ALT 35 U/L (13-61)
[2021-11-09 20:14] LABS: BILIRUBIN,TOTAL 0.5 mg/dL (0.2-1); TOT PROT 6.1 g/dl (6.4-8.2)
[2021-11-09 20:15] LABS: ALK PHOS 197 U/L (45-117)
[2021-11-09 20:17] LABS: CALCIUM 6.8 mg/dL (8.5-10.1)
[2021-11-09] MEDS ORDERED: CALCIUM GLUC IN NACL, ISO-OSM 1 GM/50 ML BAG IVPB ONE ×2 (21:09→21:10)
[2021-11-10 01:52] LABS: ALBUMIN 3.2 g/dl (3.4-5.0); BLOOD UREA NITROGEN 13.2 mg/dL (7-18)
[2021-11-10 01:55] LABS: CREATININE 0.6 mg/dL (0.55-1.3)
[2021-11-10 01:56] LABS: BILIRUBIN,TOTAL 1.1 mg/dL (0.2-1)
[2021-11-10] MEDS: CALCIUM CARBONATE 650 MG TABLET PO SCH ×4 (05:58→21:06)
[2021-11-10 07:29] LABS: BASO % 0.5 % (0-2.0); EOS % 3.9 % (0-4.5); HEMOGLOBIN 14.6 GM/dL (10.7-15.3); MCHC 33.3 g/dl (32.0-36.0); MEAN PLT VOLUME 9.4 fl (7.5-11.1); MONO % 9.1 % (3.8-10.2); NEUT % 69.5 % (42.8-82.8); PLATELET COUNT 171 10^3/uL (134-434); RBC 5.24 M/mm3 (3.60-5.2); RDW 13.1 % (11.6-15.6); WHITE BLOOD COUNT 5.3 K/mm3 (4.0-10.0)
[2021-11-10 07:51] LABS: CALCIUM 8.2 mg/dL (8.5-10.1)
[2021-11-10 07:52] LABS: ALBUMIN 3.3 g/dl (3.4-5.0); BLOOD UREA NITROGEN 11.6 mg/dL (7-18)
[2021-11-10 07:55] LABS: CREATININE 0.6 mg/dL (0.55-1.3)
[2021-11-10 07:56] LABS: TOT PROT 6.1 g/dl (6.4-8.2)
[2021-11-10 07:57] LABS: BILIRUBIN,TOTAL 0.7 mg/dL (0.2-1)
[2021-11-10] MEDS ORDERED: ERGOCALCIFEROL (VIT D2) 50,000 UNIT (1.25 MG) CAPSULE PO SCH (10:00)
[2021-11-10] MEDS ORDERED: cefTRIAXone SODIUM 1 GM VIAL ONE (10:39)
[2021-11-10] MEDS ORDERED: DEXTROSE 5%-WATER - 50 ML IVPB ONE (10:40)
[2021-11-10] MEDS: POLYETHYLENE GLYCOL (HEALTHYLAX) 3350 17 GM PACKET PO SCH ×2 (10:47→10:58)
[2021-11-10] MEDS: ASPIRIN 325 MG ENTERIC COATED TABLET (FP) PO SCH (10:48)
[2021-11-10] MEDS: CEFTRIAXONE 1 GM in DEXTROSE 5%-WATER - 50 ML IVPB SCH (10:50)
[2021-11-10] MEDS: CALCITRIOL 0.25 MCG CAPSULE (FP) PO SCH ×3 (12:21→21:06)
[2021-11-10] MEDS ORDERED: CALCIUM GLUC IN NACL, ISO-OSM 1 GM/50 ML BAG IVPB ONE (14:43)
[2021-11-10 19:43] LABS: CALCIUM 8.4 mg/dL (8.5-10.1)
[2021-11-10 19:44] LABS: ALBUMIN 3.3 g/dl (3.4-5.0); BLOOD UREA NITROGEN 12.5 mg/dL (7-18)
[2021-11-10 19:49] LABS: BILIRUBIN,TOTAL 0.4 mg/dL (0.2-1); TOT PROT 6.2 g/dl (6.4-8.2)
[2021-11-10] MEDS ORDERED: ACETAMINOPHEN 325 MG TABLET (FP) PO ONE (20:15)
[2021-11-11] MEDS: CALCIUM CARBONATE 650 MG TABLET PO SCH ×3 (05:32→21:44)
[2021-11-11 07:46] LABS: BASO % 0.9 % (0-2.0); EOS % 6.1 % (0-4.5); HEMATOCRIT 43.5 % (32.4-45.2); HEMOGLOBIN 14.4 GM/dL (10.7-15.3); LYMPH % 23.3 % (8-40); MCH 27.9 pg (25.7-33.7); MCHC 33.2 g/dl (32.0-36.0); MEAN CELL VOLUME 84.2 fl (80-96); MEAN PLT VOLUME 9.7 fl (7.5-11.1); MONO % 10.1 % (3.8-10.2); NEUT % 59.6 % (42.8-82.8); PLATELET COUNT 173 10^3/uL (134-434); RBC 5.16 M/mm3 (3.60-5.2); RDW 13.1 % (11.6-15.6); WHITE BLOOD COUNT 4.5 K/mm3 (4.0-10.0)
[2021-11-11 08:04] LABS: ALBUMIN 3.3 g/dl (3.4-5.0); BLOOD UREA NITROGEN 10.7 mg/dL (7-18); CALCIUM 8.3 mg/dL (8.5-10.1)
[2021-11-11 08:07] LABS: CREATININE 0.6 mg/dL (0.55-1.3)
[2021-11-11 08:09] LABS: BILIRUBIN,TOTAL 0.6 mg/dL (0.2-1); TOT PROT 6.2 g/dl (6.4-8.2)
[2021-11-11] MEDS: ASPIRIN 325 MG TABLET PO SCH (09:23)
[2021-11-11] MEDS: POLYETHYLENE GLYCOL (HEALTHYLAX) 3350 17 GM PACKET PO SCH (09:23)
[2021-11-11] MEDS: CALCITRIOL 0.25 MCG CAPSULE (FP) PO SCH ×2 (09:23→21:44)
[2021-11-11] MEDS ORDERED: CALCIUM GLUC IN NACL, ISO-OSM 1 GM/50 ML BAG IVPB ONE (14:30)
[2021-11-12] MEDS: CALCIUM CARBONATE 650 MG TABLET PO SCH ×2 (05:50→14:12)
[2021-11-12] MEDS: ASPIRIN 325 MG TABLET PO SCH (10:06)
[2021-11-12] MEDS: POLYETHYLENE GLYCOL (HEALTHYLAX) 3350 17 GM PACKET PO SCH (10:06)
[2021-11-12 11:06] VITALS: BP 145/90; PULSE 68; TEMP 97.7
[2021-11-12 13:09] LABS: ALBUMIN 3.6 g/dl (3.4-5.0); BLOOD UREA NITROGEN 11.5 mg/dL (7-18)
[2021-11-12 13:11] LABS: CREATININE 0.8 mg/dL (0.55-1.3)
[2021-11-12 13:13] LABS: BILIRUBIN,TOTAL 0.4 mg/dL (0.2-1)
[2021-11-12 13:19] LABS: CALCIUM 10.2 mg/dL (8.5-10.1)
[2021-11-12] MEDS: CALCITRIOL 0.25 MCG CAPSULE (FP) PO SCH (14:12)
[2021-11-16] MEDS ORDERED: ERGOCALCIFEROL (VIT D2) 50,000 UNIT (1.25 MG) CAPSULE PO SCH (10:00)
== END 2021-11-12 18:50 | disposition home or self-care (01) | DRG 425 ==
LOC: JER 18:54 → JERBED 23:50 → J4W 11-09 10:05
PROVIDERS: ADMIT Internal Medicine; ATTEND Internal Medicine
DX: E83.51 Hypocalcemia (principal); J18.9 Pneumonia, unspecified organism; E23.2 Diabetes insipidus; K59.00 Constipation, unspecified; R73.03 Prediabetes
CPT/HCPCS: 36415; 71045-TC-FY; 71250-TC; 80053; 81003; 82310; 82330; 83036; 83735; 83970; 84100; 84439; 84443; 84484; 85025; 87086; 93005; 93010; 99285-25; C9803-CS; U0003; U0005

== ENCOUNTER 2022-11-07 17:02 | Emergency (ER) | payer OTHER ==
[2022-11-07 17:10] VITALS: BP 147/77; PULSE 98; RESP 18; TEMP 98; BMI 30.5
[2022-11-07] MEDS ORDERED: KETOROLAC TROMETHAMINE 30 MG/1 ML VIAL IVPUSH ONE (19:07)
[2022-11-07] MEDS ORDERED: SODIUM CHLORIDE 1,000 ML IV ONE (19:08)
[2022-11-07] MEDS ORDERED: KETOROLAC TROMETHAMINE 15 MG/ML VIAL ONE (19:41)
[2022-11-07 19:49] LABS: BASO % 0.8 % (0-2.0); EOS % 3.7 % (0-4.5); HEMATOCRIT 40.4 % (32.4-45.2); HEMOGLOBIN 14.1 GM/dL (10.7-15.3); LYMPH % 16.8 % (8-40); MCH 28.1 pg (25.7-33.7); MEAN CELL VOLUME 80.5 fl (80-96); MEAN PLT VOLUME 9.8 fl (7.5-11.1); MONO % 7.6 % (3.8-10.2); NEUT % 71.1 % (42.8-82.8); PLATELET COUNT 151 10^3/uL (134-434); RBC 5.02 M/mm3 (3.60-5.2); RDW 13.3 % (11.6-15.6); WHITE BLOOD COUNT 8.7 K/mm3 (4.0-10.0)
[2022-11-07 19:51] LABS: EPI CELLS 4 /uL (0-25.1); HYALINE CASTS 0 /uL (0-3.1); PH,URINE 5.5 (5.0-8.0); URINE APPEARANCE TURBID; URINE BACTERIA 3404 /uL (0-1359); URINE BILIRUBIN NEGATIVE (NEGATIVE); URINE COLOR YELLOW; URINE GLUCOSE (UA) NEGATIVE (NEGATIVE); URINE KETONE NEGATIVE (NEGATIVE); URINE LEUK ESTERASE 3+ (NEGATIVE); URINE NITRITE POSITIVE (NEGATIVE); URINE PROTEIN 2+ (NEGATIVE); URINE RBC 1427 /uL (0-23.9); URINE UROBILINOGEN 0.2 mg/dL (0.2-1.0); URINE WBC 3850 /uL (0-25.8)
[2022-11-07 20:08] LABS: CALCIUM 9.2 mg/dL (8.5-10.1)
[2022-11-07 20:09] LABS: ALBUMIN 4.1 g/dl (3.4-5.0); BLOOD UREA NITROGEN 17.4 mg/dL (7-18)
[2022-11-07 20:12] LABS: CREATININE 0.7 mg/dL (0.55-1.3)
[2022-11-07 20:13] LABS: BILIRUBIN,TOTAL 0.4 mg/dL (0.2-1)
[2022-11-07 20:14] LABS: TOT PROT 7.1 g/dl (6.4-8.2)
[2022-11-07] MEDS ORDERED: SULFAMETHOXAZOLE/TRIMETHOPRIM 800MG/160MG D.S. TABLET PO ONE (22:40)
[2022-11-07] MEDS ORDERED: SULFAMETHOXAZOLE/TRIMETHOPRIM 800MG/160MG D.S. TABLET ONE (22:41)
== END 2022-11-07 22:50 | disposition home or self-care (01) ==
LOC: JERFT 17:02
PROC: 3E0333Z Introduction of Anti-inflammatory into Peripheral Vein, Percutaneous Approach (ICD-10-PCS; principal; 2022-11-07)
PROC: 3E0337Z Introduction of Electrolytic and Water Balance Substance into Peripheral Vein, Percutaneous Approach (ICD-10-PCS; 2022-11-07)
DX: N30.01 Acute cystitis with hematuria (principal)
CPT/HCPCS: 36415; 74176-TC; 80053; 81003; 85025; 87086; 87186; 99284-25